=== PATIENT | female | born 1950 | race Caucasian/White ===

== ENCOUNTER 2016-04-04 14:57 | Inpatient (IN) | payer MEDICARE ==
[~2016-04-04] VITALS: Ht 177.8 cm; Wt 129.5 kg
[~2016-04-04 14:57] MED LIST: ASPI81TA3 PO; ATOR40TA68 PO; CLOP75TA27 PO; HYDR-3498 PO; LEVE250T66 PO; LORA0.5T PO; NIFE30TA2 PO; ZOLP5TAB PO
[2016-04-04] MEDS ORDERED: SOD CHLORIDE 0.9% 1,000 ML IV ONE (15:00)
[2016-04-04] MEDS ORDERED: SOD CHLORIDE 0.9% 1,000 ML IV STA (15:00)
--- NOTE | 2016-04-04 15:36 | RADRPT ---
PROCEDURE: XR Chest. CLINICAL INDICATION: chest pain, abdominal pain TECHNIQUE: Single frontal view of the chest was obtained COMPARISON: 11/08/15 FINDINGS: The heart and mediastinum are within normal limits. The lungs are clear. There is no pleural effusion or pneumothorax. RPTAT: AA IMPRESSION: No acute disease. .Pollo Cleary MD, MD Date Time Electronically viewed and signed by .Pollo Cleary MD, on 04/04/2016 15:36 .S/
[2016-04-04 15:40] LABS: BASOPHILS % 0.1 % (0.0-2.0); HEMATOCRIT 36.9 % (37.0-47.0); HEMOGLOBIN 12.5 g/dl (12.0-16.0); LYMPHOCYTES # 1.3 10^3/ul (0.8-2.9); LYMPHOCYTES % 13.8 % (15.0-51.0); MEAN CORPUSCULAR HEMOGLOBIN 30.3 pg (29.0-33.0); MEAN CORPUSCULAR HGB CONC 33.8 g/dl (32.0-37.0); MEAN CORPUSCULAR VOLUME 89.6 fl (82.0-101.0); MEAN PLATELET VOLUME 8.2 fl (7.4-10.4); MONOCYTE # 0.6 10^3/ul (0.3-0.9); NEUTROPHIL # 7.8 10^3/ul (1.6-7.5); NEUTROPHILS % 80.1 % (39.0-77.0); PLATELET COUNT 319 10^3/UL (140-440); RED BLOOD COUNT 4.12 10^6/ul (4.20-5.40); RED CELL DISTRIBUTION WIDTH 13.7 % (11.5-14.5); UNCORRECTED WBC 9.7 10^3/ul (4.8-10.8); WHITE BLOOD COUNT 9.7 10^3/ul (4.8-10.8)
[2016-04-04 15:42] LABS: CONDITION 1
[2016-04-04] MEDS ORDERED: NIFE30TA2 PO (15:45)
[2016-04-04 15:48] LABS: INR 1.09; PROTIME 14.1 Sec (12.2-14.2); PT RATIO 1.1
[2016-04-04 15:49] LABS: CHLORIDE 95 mmol/L (97-110)
[2016-04-04 15:50] LABS: ALBUMIN 3.9 g/dl (3.3-4.9); POTASSIUM 3.8 mmol/L (3.5-5.1); SODIUM 135 mmol/L (135-144)
[2016-04-04 15:50] LABS: ADD UMIC NO; URINE BILIRUBIN (Dip) NEGATIVE (NEGATIVE); URINE BLOOD (Dip) NEGATIVE (NEGATIVE); URINE COLOR LT. YELLOW (YELLOW); URINE GLUCOSE (Dip) NEGATIVE (NEGATIVE); URINE KETONES (Dip) NEGATIVE (NEGATIVE); URINE LEUKOCYTE ESTERASE (Dip) NEGATIVE (NEGATIVE); URINE NITRITE (Dip) NEGATIVE (NEGATIVE); URINE TOTAL PROTEIN (Dip) NEGATIVE (NEGATIVE); URINE UROBILINOGEN (Dip) 0.2 E.U./dL (0.1-1.0)
[2016-04-04 15:52] LABS: CREATININE 1.33 mg/dl (0.44-1.00)
[2016-04-04 15:53] LABS: ALANINE AMINOTRANSFERASE 35 IU/L (13-69); ALBUMIN/GLOBULIN RATIO 1.39; ALKALINE PHOSPHATASE 126 IU/L (42-121); ANION GAP 17 (8-16); ASPARTATE AMINO TRANSFERASE 26 IU/L (15-46); BILIRUBIN,INDIRECT 0.5 mg/dl (0-1.1); BILIRUBIN,TOTAL 0.5 mg/dl (0.2-1.3); BLOOD UREA NITROGEN 18 mg/dl (7-20); CALCIUM 9.8 mg/dl (8.4-10.2); CARBON DIOXIDE 27 mmol/L (21-31); GLUCOSE 125 mg/dl (70-220); TOTAL PROTEIN 6.7 g/dl (6.1-8.1)
[2016-04-04 16:05] LABS: TROPONIN-I < 0.012 ng/ml (0.00-0.12)
[2016-04-04] MEDS ORDERED: ASPIRIN 325 MG TAB PO ONE (16:30)
--- NOTE | 2016-04-04 17:09 | ERA ---
ER Documentation Chief Complaint Date/Time DATE: 04/04/16 TIME: 17:02 Chief Complaint ALOC SINCE LAST NIGHT. HYSTERECTOMY LAST WEEK. R/O STEMI D/T EKG IN FIELD. HPI 65-year-old woman brought in by EMS after called 911 for increasing weakness beginning last night. She is status post total abdominal hysterectomy about 2 weeks ago and since last night has been more bedbound and generally weak. She also states she has had increasing paresthesias to the left upper and lower extremity since this morning (over 6 hours ago), which is similar to her stroke that she had last year. She denies fevers or chills, no chest pain or shortness of breath, no vomiting or diarrhea, no headache or blurry vision. Patient denies opioid or benzodiazepine use. Patient was transported here by EMS without further complications. ROS All systems reviewed and are negative except as per history of present illness. Medications Home Meds Active Scripts Clopidogrel Bisulfate (Clopidogrel) 75 Mg Tablet, 75 MG PO DAILY for 30 Days, TAB Prov:SUNI GARY NP 11/10/15 Aspirin (Aspirin) 81 Mg Chew, 81 MG PO DAILY for 30 Days, TAB Prov:SUNI GARY NP 11/10/15 Reported Medications Nifedipine (Procardia Xl) 30 Mg Tab.er.24, 30 MG PO DAILY, TAB 04/04/16 Hydrocodone Bit-Acetaminophen* ([place]*) 5-325 Mg Tab, 1 TAB PO Q4H Y for PAIN, TAB 08/06/15 Zolpidem Tartrate* (Ambien*) 5 Mg Tablet, 5 MG PO Y 08/04/11 Discontinued Scripts Lorazepam* (Lorazepam*) 0.5 Mg Tablet, 0.5 MG PO Q8 Y for ANXIETY, #10 TAB Prov:SUNI GARY NP 11/10/15 Nifedipine (Procardia Xl) 30 Mg Tab.er.24, 30 MG PO BID for 30 Days, TAB Prov:SUNI GARY NP 11/10/15 Levetiracetam* (Keppra*) 250 Mg Tab, 250 MG PO BID for 30 Days, TAB Prov:SUNI GARY NP 11/10/15 Atorvastatin* (Atorvastatin*) 40 Mg Tablet, 40 MG PO HS for 30 Days, TAB Prov:SUNI GARY NP 11/10/15 Allergies Allergies: Coded Allergies: No Known Drug Allergies (Verified Allergy, Unknown, 04/04/16) PMhx/Soc 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 diagnosed on MRI, left upper and lower extremity paresthesias, right total knee arthroplasty, bilateral carotid artery stenosis, hypertension, anxiety, obesity, seizure prophylaxis Anesthesia Reaction: No Hx Neurological Disorder: No (stroke 11/05) Hx Respiratory Disorders: No (htn ) Hx Cardiac Disorders: No Hx Psychiatric Problems: No Hx Miscellaneous Medical Probl: Yes (Anxiety) Hx Alcohol Use: No Hx Substance Use: No Hx Tobacco Use: No Smoking Status: Former smoker FmHx Family History: diabetes Physical Exam Vitals Vital Signs Date Time Temp Pulse Resp B/P Pulse Ox O2 Delivery O2 Flow Rate FiO2 04/04/16 15:59 Nasal Cannula 2 04/04/16 15:52 75 18 125/48 95 Nasal Cannula 2.0 04/04/16 15:13 100.2 81 18 136/62 90 Physical Exam GENERAL: Well-developed, well-nourished, appears dehydrated and generally weak. Afebrile, rectal temperature was 100.2F. HEENT: Dry mucous membranes, pink conjunctiva, no cervical spine tenderness or step-off deformities, no goiter, no jaundice or icterus, extraocular movements intact without pain. No submandibular induration, and no pharyngeal erythema NEURO: Alert and oriented 2, patient is able to answer simple questions and follow simple commands, cranial nerves II through XII intact bilaterally, pupils equal round reactive to light, no focal deficits or facial asymmetry, sensation intact distally Strength 5/5 in upper and lower extremities bilaterally. There is generalized muscular weakness throughout her extremities although both sides are equally weak and there is no focal deficits. CARDIAC: Regular rate and rhythm, no murmurs rubs or gallops LUNGS: Clear bilaterally no wheezing crackles or stridor ABDOMEN: Soft nontender, no guarding, no rigidity, no rebound, no psoas sign no obturator sign. Normoactive bowel sounds SKIN: Warm and dry to touch, no abrasions, contusions, or hematomas, no lacerations, no ecchymosis, no target lesions, and without ulcers EXTREMITIES: No clubbing cyanosis or edema, calves are bilaterally symmetrical, no Homans sign, no popliteal cord sign. Distal pulses equal and bilateral PSYCH: Normal affect without agitation or irritability Result Diagram: 04/04/16 1515 04/04/16 1515 Results 24 hrs Laboratory Tests Test 04/04/16 15:15 04/04/16 15:30 Alanine Aminotransferase (ALT/SGPT) 35IU/L Albumin 3.9g/dl Albumin/Globulin Ratio 1.39 Alkaline Phosphatase 126IU/L Anion Gap 17 Aspartate Amino Transf (AST/SGOT) 26IU/L Basophils # 0.010^3/ul Basophils % 0.1% Blood Urea Nitrogen 18mg/dl Calcium Level 9.8mg/dl Carbon Dioxide Level 27mmol/L Chloride Level 95mmol/L Creatinine 1.33mg/dl Direct Bilirubin 0.00mg/dl Eosinophils # 0.010^3/ul Eosinophils % 0.0% Globulin 2.80g/dl Glucose Level 125mg/dl Hematocrit 36.9% Hemoglobin 12.5g/dl INR International Normalized Ratio 1.09 Indirect Bilirubin 0.5mg/dl Lipase 32U/L Lymphocytes # 1.310^3/ul Lymphocytes % 13.8% Mean Corpuscular Hemoglobin 30.3pg Mean Corpuscular Hemoglobin Concent 33.8g/dl Mean Corpuscular Volume 89.6fl Mean Platelet Volume 8.2fl Monocytes # 0.610^3/ul Monocytes % 6.0% Neutrophils # 7.810^3/ul Neutrophils % 80.1% Nucleated Red Blood Cells # 0.010^3/ul Nucleated Red Blood Cells % 0.0/100WBC Platelet Count 28910^3/UL Potassium Level 3.8mmol/L Prothrombin Time 14.1Sec Prothrombin Time Ratio 1.1 Red Blood Count 4.1210^6/ul Red Cell Distribution Width 13.7% Sodium Level 135mmol/L Total Bilirubin 0.5mg/dl Total Protein 6.7g/dl Troponin I < 0.012ng/ml White Blood Count 9.710^3/ul Urine Bilirubin NEGATIVE Urine Clarity SLIGHTLY CLOUDY Urine Color LT. YELLOW Urine Glucose NEGATIVE% Urine Hemoglobin NEGATIVE Urine Ketones NEGATIVE Urine Leukocyte Esterase NEGATIVE Urine Nitrite NEGATIVE Urine Specific [place] 1.020 Urine Total Protein NEGATIVE Urine Urobilinogen 0.2 E.U./dL Urine pH 5.5 Current Medications Medications (Trade) Dose Ordered Sig/Codie Route PRN Reason Start Time Stop Time Status Last Admin Dose Admin Sodium Chloride 1,000 ml @ 1,000 mls/hr Q1H STAT IV 2/13/17 15:00 04/04/16 15:59 DC 04/04/16 15:51 Sodium Chloride (NS) 1,000 ml @ 1,000 mls/hr Q1H ONCE IV 04/04/16 15:00 04/04/16 15:59 DC 04/04/16 15:51 Aspirin (Aspirin) 325 mg ONCE ONCE PO 04/04/16 16:30 04/04/16 16:33 DC Procedures/MDM IV line was established patient was placed on operations coordinator rhythm strip revealed a sinus rhythm, wide complex, 90 bpm. Patient was afebrile. Blood sugar was normal. EKG performed, read by me revealed a normal sinus rhythm at 90 bpm, left axis deviation, and a right bundle branch block, no concerning ST elevations or depressions noted, QRS duration [address] scan of the brain was performed it was negative for acute bleed mass or shift. One view chest x-ray performed, read by me there is a right shoulder arthroplasty with hardware in place, cardiomegaly, no acute infiltrates, no pneumothorax. I administered 3 L normal saline intravenously for dehydration, and administered aspirin 325 mg p.o. for neuro protective measures. CBC and electrolytes were unremarkable, liver function tests were normal, troponin was negative. Urine analysis was also negative for infection and I will defer antibiotic administration pending urine cultures. Patient has no focal deficits and mental status has improved somewhat although she does remain encephalopathic and has complaints of left sided paresthesias which seems similar to her previous stroke. She will be admitted to telemetry setting for neurology consultation and MRI brain. 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
--- NOTE | 2016-04-04 17:10 | RADRPT ---
PROCEDURE: Noncontrast CT Head. CLINICAL INDICATION: Intracranial hemorrhage. TECHNIQUE: Noncontrast CT of the head was obtained. The administered radiation dose was CTDI vol = 44.58 mGy, DLP = 720.23 mGy-cm. COMPARISON: Noncontrast CT of the head from November 08, 2015. FINDINGS: There is minimal bilateral frontal cerebral volume loss. There is no loss of vizcarra-white differentiation to suggest acute territorial infarction. There is no acute intracranial hemorrhage or extra-axial fluid collection. There is no mass effect. No midline shift is identified. The orbits are within normal limits. The paranasal sinuses are well aerated. No destructive osseous lesion is identified. IMPRESSION: No significant change. 1. No acute intracranial hemorrhage or extra-axial fluid collection. 2. Minimal bilateral frontal cerebral volume loss. Further findings as detailed above. RPTAT: PP .Jaime Travis MD, MD Date Time Electronically viewed and signed by .Jaime Travis MD, MD on 04/04/2016 17:10 .F/
[2016-04-04 17:30] VITALS: BP 129/57; PULSE 83; RESP 19
[2016-04-04 18:00] VITALS: Ht 177.8 cm; Wt 129.5 kg
[2016-04-04] MEDS ORDERED: ONDANSETRON 4 MG INJ IV PRN (19:00)
[2016-04-04] MEDS ORDERED: morphine 2 MG INJ IV PRN (19:00)
[2016-04-04] MEDS ORDERED: ACETAMINOPHEN 325 MG TAB PO PRN (19:00)
[2016-04-04] MEDS ORDERED: ZOLPIDEM 5 MG TAB PO PRN (19:00)
[2016-04-04] MEDS ORDERED: NACL 0.9% 3 ML SYG IV SCH (19:00)
[2016-04-04] MEDS ORDERED: INFLUENZA VIRUS VACCINE 0.5 ML SYG IM* ONE (19:30)
[2016-04-04 20:00] VITALS: PULSE 66
[2016-04-04 20:14] VITALS: BP 124/58; RESP 18
[2016-04-04] MEDS: 1/2 NS + KCL 20 MEQ 1,000 ML IV SCH (20:58)
[2016-04-04] MEDS: metroNIDAZOLE 500 MG/NS (PMX) 100 ML IVPB SCH (21:09)
--- NOTE | 2016-04-04 22:52 | HP ---
DATE OF ADMISSION: 04/04/2016 CHIEF COMPLAINT: Weakness. HISTORY OF PRESENT ILLNESS: The patient is a 65-year-old female with a history of acute infarction in the right cingulate gyrus with no residual deficits, coronary artery disease, hypertension, dysli pidemia, obesity and anxiety disorder. The patient had a recent hysterectomy for dysfunctional uter ine bleeding approximately 2 weeks ago at an outside facility. Since then, the patient has been bec oming increasingly weak. She has been having loose bowel movements, unable to hold down any food as she continues to have diarrhea. She denies any nausea, vomiting. According to the , kesha zambrano is becoming increasingly weak to the point where she could not walk yesterday. She also had some slurred speech yesterday and this morning. The patient does report some focal weakness on the left side but also states that she is weak throughout her body and mostly in her lower extremities. In [facility] ED, brain CT showed no acute findings. The patient has no other complaints at this time. PAST MEDICAL HISTORY: As per HPI. PAST SURGICAL HISTORY: Right shoulder surgery, knee replacement x2, hysterectomy 2 weeks ago. HOME MEDICATIONS: 1. Aspirin. 2. Plavix. 3. [place]. 4. Procardia. 5. Ambien. FAMILY HISTORY: Denies. SOCIAL HISTORY: Denies any alcohol, tobacco or drug abuse. REVIEW OF SYSTEMS: A 12-point review of systems negative except for that as in HPI. PHYSICAL EXAMINATION: VITAL SIGNS: T-max 100.2, pulse 75, respiratory rate is 18, BP is 125/48, saturation 95% on 2 L. GENERAL: No acute distress. Alert and oriented. HEENT: Normocephalic, atraumatic. CHEST: Clear to auscultation. CARDIOVASCULAR: Regular rate and rhythm. ABDOMEN: Nondistended, nontender, soft, obese. EXTREMITIES: No clubbing, cyanosis, edema. NEUROLOGIC: Generalized weakness in all extremities at approximately 4-/5 in all extremities. No f ocal deficits are noted. LABORATORIES: White count is 9.7, hemoglobin 12.5, platelets are 319. Chemistry within normal limi ts except for chloride of 95, anion gap of 17, creatinine is 1.33, alkaline phosphatase of 126. INR is 1.09. UA is within normal limits. DIAGNOSTICS: Chest x-ray shows no acute disease. Brain CT shows no significant change, no acute intracranial hemorrhage or fluid collection. Minimal bilateral frontal cerebral volume loss. ASSESSMENT AND PLAN: 1. Generalized weakness, likely secondary to severe dehydration from persistent diarrhea. The abel ent's labs are suggestive of dehydration. Will treat with IV fluids, get a PT evaluation. The abel ent has no signs of infection at this time but will follow up with blood and urine cultures. Will t reat empirically with Rocephin IV. 2. Acute kidney injury, likely secondary to prerenal dehydration. Will treat with IV fluids, monit or. 3. History of cerebrovascular accident. The patient denies any residual deficits from her previous stroke. 4. Hypertension. Continue Procardia. 5. Dyslipidemia. Continue statin. 6. History of atherosclerosis with carotid artery stenosis. Continue aspirin, Plavix. 7. Prophylaxis. SCDs. Dictated By: IQRA SUN MD BS/NTS Conf#: [id number] DID#: [id number]
[2016-04-05] VITALS (13 sets, daily range): BP systolic 114–140; BP diastolic 56–61; PULSE 71–82; RESP 16–18
[2016-04-05] MEDS: 1/2 NS + KCL 20 MEQ 1,000 ML IV SCH ×3 (05:15→21:04)
[2016-04-05] MEDS: metroNIDAZOLE 500 MG/NS (PMX) 100 ML IVPB SCH (05:16)
[2016-04-05 08:06] LABS: ALBUMIN 3.3 g/dl (3.3-4.9); POTASSIUM 4.7 mmol/L (3.5-5.1)
[2016-04-05 08:08] LABS: CREATININE 1.02 mg/dl (0.44-1.00)
[2016-04-05 08:09] LABS: ALBUMIN/GLOBULIN RATIO 1.57; BILIRUBIN,INDIRECT 0.3 mg/dl (0-1.1); BILIRUBIN,TOTAL 0.3 mg/dl (0.2-1.3); CALCIUM 8.8 mg/dl (8.4-10.2); TOTAL PROTEIN 5.4 g/dl (6.1-8.1)
[2016-04-05 08:10] LABS: CHOL/HDL RATIO 3.3 RATIO; MAGNESIUM 1.5 mg/dl (1.7-2.5)
[2016-04-05 08:23] LABS: T3 UPTAKE 33.7 % (23.5-40.5)
[2016-04-05] MEDS: CLOPIDOGREL 75 MG TAB PO SCH (08:57)
[2016-04-05] MEDS: ASPIRIN 81 MG TAB PO SCH (08:57)
[2016-04-05] MEDS: NIFEdipine (XL) 30 MG TAB PO SCH (08:59)
[2016-04-05 09:08] LABS: BASOPHILS % 0.3 % (0.0-2.0); HEMATOCRIT 31.8 % (37.0-47.0); HEMOGLOBIN 10.8 g/dl (12.0-16.0); LYMPHOCYTES # 1.5 10^3/ul (0.8-2.9); LYMPHOCYTES % 19.8 % (15.0-51.0); MEAN CORPUSCULAR HEMOGLOBIN 30.4 pg (29.0-33.0); MEAN CORPUSCULAR VOLUME 89.5 fl (82.0-101.0); MEAN PLATELET VOLUME 7.9 fl (7.4-10.4); MONOCYTE # 0.6 10^3/ul (0.3-0.9); MONOCYTES % 8.7 % (0.0-11.0); NEUTROPHIL # 5.3 10^3/ul (1.6-7.5); NEUTROPHILS % 71.2 % (39.0-77.0); PLATELET COUNT 272 10^3/UL (140-440); RED BLOOD COUNT 3.56 10^6/ul (4.20-5.40); RED CELL DISTRIBUTION WIDTH 13.9 % (11.5-14.5); UNCORRECTED WBC 7.5 10^3/ul (4.8-10.8); WHITE BLOOD COUNT 7.5 10^3/ul (4.8-10.8)
[2016-04-05 09:14] LABS: CONDITION 1
--- NOTE | 2016-04-05 14:27 | PN ---
Date/Time of Note Date/Time of Note DATE: 04/05/16 TIME: 14:21 Assessment/Plan VTE Prophylaxis VTE Prophylaxis Intervention: SCD's Assessment/Plan Chief Complaint/Hosp Course 1. Generalized weakness, likely secondary to severe dehydration from persistent diarrhea -cont IVF, PT eval -CDiff pending, cont Flagyl 2. Prerenal dehydration -cont IVF 3. History of cerebrovascular accident-pt does report residual weakness on the L -Previous CVA involved the right cingulate gyrus c/w L sided weakness at baseline 4. Hypertension -Continue Procardia. 5. Dyslipidemia -Continue statin. 6. History of atherosclerosis with carotid artery stenosis -Continue aspirin, Plavix. 7. Prophylaxis. SCDs. Problems: Subjective 24 Hr Interval Summary Constitutional: other (gen weakness ) Exam/Review of Systems Vital Signs Vitals Vital Signs Date Time Temp Pulse Resp B/P Pulse Ox O2 Delivery O2 Flow Rate FiO2 04/05/16 12:26 79 04/05/16 11:49 98.3 16 117/59 97 04/04/16 17:30 Nasal Cannula 04/04/16 15:59 2 Intake and Output 04/04/16 04/04/16 04/05/16 15:00 23:00 07:00 Intake Total 100 ml 1580 ml Balance 100 ml 1580 ml Exam Constitutional: alert Respiratory: clear to auscultation Cardiovascular: regular rate and rhythm Gastrointestinal: soft, No distended Musculoskeletal: nl extremities to inspection Neurological: focal weakness (slightly weakner on the L ) Results Result Diagram: 04/05/16 0707 04/05/16 0707 Results 24 hrs Laboratory Tests Test 04/04/16 15:15 04/04/16 15:30 04/05/16 07:07 04/05/16 11:51 Alanine Aminotransferase (ALT/SGPT) 35 31 Albumin 3.9 3.3 Albumin/Globulin Ratio 1.39 1.57 Alkaline Phosphatase 126 H 106 Anion Gap 17 H 16 Aspartate Amino Transf (AST/SGOT) 26 25 Basophils # 0.0 0.0 Basophils % 0.1 0.3 Blood Urea Nitrogen 18 16 Calcium Level 9.8 8.8 Carbon Dioxide Level 27 25 Chloride Level 95 L 99 Creatinine 1.33 H 1.02 H Direct Bilirubin 0.00 0.00 Eosinophils # 0.0 0.0 Eosinophils % 0.0 0.0 Globulin 2.80 2.10 Glucose Level 125 127 Hematocrit 36.9 L 31.8 L Hemoglobin 12.5 10.8 L INR International Normalized Ratio 1.09 Indirect Bilirubin 0.5 0.3 Lipase 32 Lymphocytes # 1.3 1.5 Lymphocytes % 13.8 L 19.8 Mean Corpuscular Hemoglobin 30.3 30.4 Mean Corpuscular Hemoglobin Concent 33.8 34.0 Mean Corpuscular Volume 89.6 89.5 Mean Platelet Volume 8.2 7.9 Monocytes # 0.6 0.6 Monocytes % 6.0 8.7 Neutrophils # 7.8 H 5.3 Neutrophils % 80.1 H 71.2 Nucleated Red Blood Cells # 0.0 0.0 Nucleated Red Blood Cells % 0.0 0.0 Platelet Count 319 # 272 Potassium Level 3.8 4.7 Prothrombin Time 14.1 Prothrombin Time Ratio 1.1 Red Blood Count 4.12 L 3.56 L Red Cell Distribution Width 13.7 13.9 Sodium Level 135 135 Total Bilirubin 0.5 0.3 Total Protein 6.7 5.4 #L Troponin I < 0.012 White Blood Count 9.7 # 7.5 # Urine Bilirubin NEGATIVE Urine Clarity SLIGHTLY CLOUDY Urine Color LT. YELLOW Urine Glucose NEGATIVE Urine Hemoglobin NEGATIVE Urine Ketones NEGATIVE Urine Leukocyte Esterase NEGATIVE Urine Nitrite NEGATIVE Urine Specific [place] 1.020 Urine Total Protein NEGATIVE Urine Urobilinogen 0.2 E.U./dL Urine pH 5.5 Cholesterol Level 129 Cholesterol/HDL Ratio 3.3 Free Thyroxine Index 2.49 HDL Cholesterol 39 Hemoglobin A1c 5.6 LDL Cholesterol, Calculated 73 Magnesium Level 1.5 L Phosphorus Level 4.0 Thyroxine (T4) 7.4 Triglycerides Level 86 Triiodothyronine (T3) Uptake 33.7 Bedside Glucose 115 Medications Medications Current Medications Potassium Chloride/Sodium Chloride (02/21 NS + KCl 20 Meq) 1,000 ml @ 125 mls/hr Q8H IV Last administered on 04/05/16t 05:15; Admin Dose 125 MLS/HR; Start 04/04 at 18:50 Ondansetron HCl (Zofran Inj) 4 mg Q6H PRN IV NAUSEA AND/OR VOMITING; Start at 19:00 Acetaminophen (Tylenol Tab) 650 mg Q6H PRN PO PAIN LEVEL 1-3 OR FEVER; Start at 19:00 Acetaminophen/ Hydrocodone Bitart ([place] (5/325)) 1 tab Q6H PRN PO MODERATE PAIN LEVEL 4-6; Start 04/04/16 at 19:00 Morphine Sulfate (morphine) 2 mg Q4H PRN IV SEVERE PAIN LEVEL 7-10; Start 04/04 at 19:00 Zolpidem Tartrate (Ambien) 5 mg QHS PRN PO SLEEP; Start 04/04/16 at 19:00 Aspirin (Aspirin) 81 mg DAILY PO Last administered on 04/05/16 08:57; Admin Dose 81 MG; Start 04/05/16 at 09:00 Clopidogrel Bisulfate (plaVIX) 75 mg DAILY PO Last administered on 04/05/16 08 :57; Admin Dose 75 MG; Start 04/05/16 at 09:00 Nifedipine (Procardia Xl) 30 mg DAILY PO Last administered on 04/05/16 08:59; Admin Dose 30 MG; Start 04/05/16 at 09:00 Metronidazole (Flagyl) 500 mg TID PO ; Start 04/05/16 at 14:00 IQRA SUN Apr 05, 2016 14:27
[2016-04-05] MEDS: metroNIDAZOLE 500 MG TAB PO SCH ×2 (16:00→21:04)
[2016-04-05] MEDS ORDERED: MAGNESIUM SULFATE 4 GM/100 ML 100 ML IVPB ONE (16:00)
[2016-04-06] VITALS (14 sets, daily range): BP systolic 129–162; BP diastolic 60–76; PULSE 72–82; RESP 17–19
[2016-04-06] MEDS: 1/2 NS + KCL 20 MEQ 1,000 ML IV SCH ×3 (02:50→17:27)
[2016-04-06 07:29] LABS: BASOPHILS % 0.2 % (0.0-2.0); HEMATOCRIT 30.9 % (37.0-47.0); HEMOGLOBIN 10.6 g/dl (12.0-16.0); LYMPHOCYTES # 0.7 10^3/ul (0.8-2.9); LYMPHOCYTES % 11.4 % (15.0-51.0); MEAN CORPUSCULAR HEMOGLOBIN 30.4 pg (29.0-33.0); MEAN CORPUSCULAR HGB CONC 34.4 g/dl (32.0-37.0); MEAN CORPUSCULAR VOLUME 88.3 fl (82.0-101.0); MEAN PLATELET VOLUME 7.9 fl (7.4-10.4); MONOCYTE # 0.5 10^3/ul (0.3-0.9); MONOCYTES % 7.8 % (0.0-11.0); NEUTROPHILS % 80.6 % (39.0-77.0); PLATELET COUNT 232 10^3/UL (140-440); RED CELL DISTRIBUTION WIDTH 13.6 % (11.5-14.5); UNCORRECTED WBC 6.2 10^3/ul (4.8-10.8); WHITE BLOOD COUNT 6.2 10^3/ul (4.8-10.8)
[2016-04-06 07:33] LABS: CONDITION 1
[2016-04-06 07:39] LABS: POTASSIUM 4.1 mmol/L (3.5-5.1)
[2016-04-06 07:41] LABS: CREATININE 0.85 mg/dl (0.44-1.00)
[2016-04-06 07:42] LABS: CALCIUM 8.7 mg/dl (8.4-10.2); MAGNESIUM 2.3 mg/dl (1.7-2.5)
[2016-04-06] MEDS: CLOPIDOGREL 75 MG TAB PO SCH (08:26)
[2016-04-06] MEDS: ASPIRIN 81 MG TAB PO SCH (08:26)
[2016-04-06] MEDS: HYDROCODONE/APAP (5/325) TAB PO PRN ×2 (08:26→20:24)
[2016-04-06] MEDS: metroNIDAZOLE 500 MG TAB PO SCH ×3 (08:27→20:24)
[2016-04-06] MEDS: NIFEdipine (XL) 30 MG TAB PO SCH (08:27)
--- NOTE | 2016-04-06 14:19 | CONS ---
Date/Time of Note Date/Time of Note DATE: 04/06/16 TIME: 14:11 Assessment/Plan Assessment/Plan Additional Assessment/Plan Diarrhea * Rule out infectious process vs IBD * C diff stool test * Stool OB * CT abdomen * Start clear diet * Consider colonoscopy if clinically indicate Generalized weakness, likely secondary to severe dehydration from persistent diarrhea Prerenal dehydration History of cerebrovascular accident- * Previous CVA involved the right cingulate gyrus c/w L sided weakness at baseline Hypertension Dyslipidemia History of atherosclerosis with carotid artery stenosis Further recommendations depend on clinical course Consultation Date/Type/Reason Admit Date/Time Apr 04, 2016 at 16:51 Type of Consultation: GI Reason for Consultation Increase in stool Hx of Present Illness 65 YO F presented to ED after fall to bilateral knees. During hospitalization, pt reported that the frequency of her stools increased after her laparoscopic hysterectomy. Pt reports having up to 10 soft stools per day. Pt denies any soft stools with this hospitalization. Pt denies abdominal pain (other than from abdominal incisions), nausea, vomiting, fever, chills, travel outside [place], and sick contacts. Pt reports taking two doses of Flagyl after hysterectomy. Pt reports colonoscopy nearly nine years ago but denies history of colon polyps. Pt denies history of IBD, colon CA, and diverticulosis. Constitutional: other (gen weakness ) Past Surgical History Past Surgical Hx: other (hysterectomy) Social History Smoking Status: Never smoker Exam/Review of Systems Vital Signs Vitals Vital Signs Date Time Temp Pulse Resp B/P Pulse Ox O2 Delivery O2 Flow Rate FiO2 04/06/16 12:19 77 04/06/16 12:09 97.7 17 141/67 96 04/04/16 17:30 Nasal Cannula 04/04/16 15:59 2 Intake and Output 04/05/16 04/05/16 04/06/16 15:00 23:00 07:00 Intake Total 880 ml 300 ml Output Total 1050 ml 500 ml Balance -170 ml -200 ml Exam Constitutional: alert, obese, oriented, well developed Psych: nl mood/affect Head: normocephalic Eyes: EOMI, nl conjunctiva, nl lids, nl sclera ENMT: nl external ears & nose, nl lips & teeth, nl nasal mucosa & septum Respiratory: normal air movement Cardiovascular: regular rate and rhythm Gastrointestinal: soft, surgical scars (slightly tender) Neurological: 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 COFFEE ATTENDANT II-XII intact Results Result Diagram: 04/06/16 0636 04/06/16 0636 Results 24 hrs Laboratory Tests Test 04/06/16 06:36 Anion Gap 14 Basophils # 0.0 Basophils % 0.2 Blood Urea Nitrogen 12 Calcium Level 8.7 Carbon Dioxide Level 25 Chloride Level 99 Creatinine 0.85 Eosinophils # 0.0 Eosinophils % 0.0 Glucose Level 137 Hematocrit 30.9 L Hemoglobin 10.6 L Lymphocytes # 0.7 L Lymphocytes % 11.4 L Magnesium Level 2.3 Mean Corpuscular Hemoglobin 30.4 Mean Corpuscular Hemoglobin Concent 34.4 Mean Corpuscular Volume 88.3 Mean Platelet Volume 7.9 Monocytes # 0.5 Monocytes % 7.8 Neutrophils # 5.0 Neutrophils % 80.6 H Nucleated Red Blood Cells # 0.0 Nucleated Red Blood Cells % 0.0 Platelet Count 232 Potassium Level 4.1 Red Blood Count 3.50 L Red Cell Distribution Width 13.6 Sodium Level 134 L White Blood Count 6.2 Medications Medications Current Medications Potassium Chloride/Sodium Chloride (02/21 NS + KCl 20 Meq) 1,000 ml @ 125 mls/hr Q8H IV Last administered on 04/06/16 09:09; Admin Dose 125 MLS/HR; Start 04/04 at 18:50 Ondansetron HCl (Zofran Inj) 4 mg Q6H PRN IV NAUSEA AND/OR VOMITING; Start at 19:00 Acetaminophen (Tylenol Tab) 650 mg Q6H PRN PO PAIN LEVEL 1-3 OR FEVER; Start at 19:00 Acetaminophen/ Hydrocodone Bitart ([place] (5/325)) 1 tab Q6H PRN PO MODERATE PAIN LEVEL 4-6 Last administered on 04/06/16 08:26; Admin Dose 1 TAB; Start at 19:00 Morphine Sulfate (morphine) 2 mg Q4H PRN IV SEVERE PAIN LEVEL 7-10; Start 04/04 at 19:00 Zolpidem Tartrate (Ambien) 5 mg QHS PRN PO SLEEP; Start 04/04/16 at 19:00 Aspirin (Aspirin) 81 mg DAILY PO Last administered on 04/06/16 08:26; Admin Dose 81 MG; Start 04/05/16 at 09:00 Clopidogrel Bisulfate (plaVIX) 75 mg DAILY PO Last administered on 04/06/16 08 :26; Admin Dose 75 MG; Start 04/05/16 at 09:00 Nifedipine (Procardia Xl) 30 mg DAILY PO Last administered on 04/06/16 08:27; Admin Dose 30 MG; Start 04/05/16 at 09:00 Metronidazole (Flagyl) 500 mg TID PO Last administered on 04/06/16 13:46; Admin Dose 500 MG; Start 04/05/16 at 14:00 ALVA GOODEN MD Apr 06, 2016 14:18
[2016-04-06] MEDS ORDERED: BISACODYL (EC) 5 MG TAB PO ONE (15:00)
--- NOTE | 2016-04-06 15:35 | PN ---
Date/Time of Note Date/Time of Note DATE: 04/06/16 TIME: 15:34 Assessment/Plan VTE Prophylaxis VTE Prophylaxis Intervention: SCD's Lines/Catheters IV Catheter Type (from Nrs): Peripheral IV Assessment/Plan Chief Complaint/Hosp Course 1. Generalized weakness, likely secondary to severe dehydration from persistent diarrhea -cont IVF, PT eval -CDiff pending, cont Flagyl -GI consult -Rehab consult 2. Prerenal dehydration-Improved -cont IVF 3. History of cerebrovascular accident-pt does report residual weakness on the L -Previous CVA involved the right cingulate gyrus c/w L sided weakness at baseline 4. Hypertension -Continue Procardia. 5. Dyslipidemia -Continue statin. 6. History of atherosclerosis with carotid artery stenosis -Continue aspirin, Plavix. 7. Prophylaxis. SCDs. Problems: Subjective 24 Hr Interval Summary Constitutional: other (gen weakness) Exam/Review of Systems Vital Signs Vitals Vital Signs Date Time Temp Pulse Resp B/P Pulse Ox O2 Delivery O2 Flow Rate FiO2 04/06/16 12:19 77 04/06/16 12:09 97.7 17 141/67 96 04/04/16 17:30 Nasal Cannula 04/04/16 15:59 2 Intake and Output 04/05/16 04/05/16 04/06/16 15:00 23:00 07:00 Intake Total 880 ml 300 ml Output Total 1050 ml 500 ml Balance -170 ml -200 ml Exam Constitutional: alert Respiratory: clear to auscultation Cardiovascular: regular rate and rhythm Gastrointestinal: soft, No distended Musculoskeletal: nl extremities to inspection Neurological: other (gen weakness) Results Result Diagram: 04/06/16 0636 04/06/16 0636 Results 24 hrs Laboratory Tests Test 04/06/16 06:36 Anion Gap 14 Basophils # 0.0 Basophils % 0.2 Blood Urea Nitrogen 12 Calcium Level 8.7 Carbon Dioxide Level 25 Chloride Level 99 Creatinine 0.85 Eosinophils # 0.0 Eosinophils % 0.0 Glucose Level 137 Hematocrit 30.9 L Hemoglobin 10.6 L Lymphocytes # 0.7 L Lymphocytes % 11.4 L Magnesium Level 2.3 Mean Corpuscular Hemoglobin 30.4 Mean Corpuscular Hemoglobin Concent 34.4 Mean Corpuscular Volume 88.3 Mean Platelet Volume 7.9 Monocytes # 0.5 Monocytes % 7.8 Neutrophils # 5.0 Neutrophils % 80.6 H Nucleated Red Blood Cells # 0.0 Nucleated Red Blood Cells % 0.0 Platelet Count 232 Potassium Level 4.1 Red Blood Count 3.50 L Red Cell Distribution Width 13.6 Sodium Level 134 L White Blood Count 6.2 Medications Medications Current Medications Potassium Chloride/Sodium Chloride (1/2 NS + KCl 20 Meq) 1,000 ml @ 125 mls/hr Q8H IV Last administered on 04/06/16 09:09; Admin Dose 125 MLS/HR; Start 04/04 at 18:50 Ondansetron HCl (Zofran Inj) 4 mg Q6H PRN IV NAUSEA AND/OR VOMITING; Start at 19:00 Acetaminophen (Tylenol Tab) 650 mg Q6H PRN PO PAIN LEVEL 1-3 OR FEVER; Start at 19:00 Acetaminophen/ Hydrocodone Bitart ([place] (5/325)) 1 tab Q6H PRN PO MODERATE PAIN LEVEL 4-6 Last administered on 04/06/16 08:26; Admin Dose 1 TAB; Start at 19:00 Morphine Sulfate (morphine) 2 mg Q4H PRN IV SEVERE PAIN LEVEL 7-10; Start 04/04 at 19:00 Zolpidem Tartrate (Ambien) 5 mg QHS PRN PO SLEEP; Start 04/04/16 at 19:00 Aspirin (Aspirin) 81 mg DAILY PO Last administered on 04/06/16 08:26; Admin Dose 81 MG; Start 04/05/16 at 09:00 Clopidogrel Bisulfate (plaVIX) 75 mg DAILY PO Last administered on 04/06/16 08 :26; Admin Dose 75 MG; Start 04/05/16 at 09:00 Nifedipine (Procardia Xl) 30 mg DAILY PO Last administered on 04/06/16 08:27; Admin Dose 30 MG; Start 04/05/16 at 09:00 Metronidazole (Flagyl) 500 mg TID PO Last administered on 04/06/16 13:46; Admin Dose 500 MG; Start 04/05/16 at 14:00 IQRA SUN Apr 06, 2016 15:35
[2016-04-06] MEDS ORDERED: BARIUM SULF 2% 450 ML BTL (BERRY SMOOTHIE) PO ONE (16:00)
[2016-04-07] VITALS (10 sets, daily range): BP systolic 137–146; BP diastolic 65–70; PULSE 71–88; RESP 14–18
[2016-04-07] MEDS: 1/2 NS + KCL 20 MEQ 1,000 ML IV SCH ×3 (02:26→16:49)
[2016-04-07] MEDS: HYDROCODONE/APAP (5/325) TAB PO PRN ×3 (02:28→22:19)
[2016-04-07 08:23] LABS: BASOPHILS % 0.4 % (0.0-2.0); HEMATOCRIT 30.7 % (37.0-47.0); HEMOGLOBIN 10.4 g/dl (12.0-16.0); LYMPHOCYTES % 16.8 % (15.0-51.0); MEAN CORPUSCULAR HEMOGLOBIN 30.4 pg (29.0-33.0); MEAN CORPUSCULAR VOLUME 89.5 fl (82.0-101.0); MEAN PLATELET VOLUME 8.2 fl (7.4-10.4); MONOCYTE # 0.5 10^3/ul (0.3-0.9); MONOCYTES % 8.8 % (0.0-11.0); NEUTROPHIL # 4.3 10^3/ul (1.6-7.5); PLATELET COUNT 246 10^3/UL (140-440); RED BLOOD COUNT 3.43 10^6/ul (4.20-5.40); RED CELL DISTRIBUTION WIDTH 13.7 % (11.5-14.5); UNCORRECTED WBC 5.8 10^3/ul (4.8-10.8); WHITE BLOOD COUNT 5.8 10^3/ul (4.8-10.8)
[2016-04-07 08:26] LABS: CONDITION 1
[2016-04-07 08:29] LABS: POTASSIUM 4.3 mmol/L (3.5-5.1)
[2016-04-07 08:32] LABS: CREATININE 0.9 mg/dl (0.44-1.00)
[2016-04-07 08:33] LABS: CALCIUM 8.8 mg/dl (8.4-10.2)
[2016-04-07] MEDS: CLOPIDOGREL 75 MG TAB PO SCH (09:01)
[2016-04-07] MEDS: metroNIDAZOLE 500 MG TAB PO SCH ×3 (09:01→21:14)
[2016-04-07] MEDS: ASPIRIN 81 MG TAB PO SCH (09:01)
[2016-04-07] MEDS: NIFEdipine (XL) 30 MG TAB PO SCH (09:02)
--- NOTE | 2016-04-07 11:44 | CONS ---
Date/Time of Note Date/Time of Note DATE: 04/07/16 TIME: 11:40 Assessment/Plan Assessment/Plan Additional Assessment/Plan Diarrhea * Rule out infectious process vs IBD * C diff stool test * Stool OB * CT abdomen * Start clear diet * Consider colonoscopy if clinically indicate Generalized weakness, likely secondary to severe dehydration from persistent diarrhea Prerenal dehydration History of cerebrovascular accident- * Previous CVA involved the right cingulate gyrus c/w L sided weakness at baseline Hypertension Dyslipidemia History of atherosclerosis with carotid artery stenosis Further recommendations depend on clinical course Consultation Date/Type/Reason Admit Date/Time Apr 06, 2016 at 11:07 Initial Consult Date Type of Consultation: GI 24 HR Interval Summary Free Text/Dictation CT planned today No BM yet Exam/Review of Systems Vital Signs Vitals Vital Signs Date Time Temp Pulse Resp B/P Pulse Ox O2 Delivery O2 Flow Rate FiO2 04/07/16 08:29 98.4 75 14 145/66 95 04/06/16 23:35 Room Air 04/04/16 15:59 2 Intake and Output 04/06/16 04/06/16 04/07/16 15:00 23:00 07:00 Intake Total 800 ml 1000 ml Balance 800 ml 1000 ml Exam Constitutional: alert, obese, oriented, well developed Psych: nl mood/affect Head: normocephalic Eyes: EOMI, nl conjunctiva, nl lids, nl sclera ENMT: nl external ears & nose, nl lips & teeth, nl nasal mucosa & septum Respiratory: normal air movement Cardiovascular: regular rate and rhythm Gastrointestinal: soft, surgical scars (slightly tender) 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 Results Result Diagram: 04/07/16 0700 04/07/16 0700 Results 24 hrs Laboratory Tests Test 04/07/16 07:00 Anion Gap 13 Basophils # 0.0 Basophils % 0.4 Blood Urea Nitrogen 11 Calcium Level 8.8 Carbon Dioxide Level 26 Chloride Level 104 Creatinine 0.90 Eosinophils # 0.0 Eosinophils % 0.0 Glucose Level 101 Hematocrit 30.7 L Hemoglobin 10.4 L Lymphocytes # 1.0 Lymphocytes % 16.8 Mean Corpuscular Hemoglobin 30.4 Mean Corpuscular Hemoglobin Concent 34.0 Mean Corpuscular Volume 89.5 Mean Platelet Volume 8.2 Monocytes # 0.5 Monocytes % 8.8 Neutrophils # 4.3 Neutrophils % 74.0 Nucleated Red Blood Cells # 0.0 Nucleated Red Blood Cells % 0.0 Platelet Count 246 Potassium Level 4.3 Red Blood Count 3.43 L Red Cell Distribution Width 13.7 Sodium Level 139 White Blood Count 5.8 Medications Medications Current Medications Potassium Chloride/Sodium Chloride (1/2 NS + KCl 20 Meq) 1,000 ml @ 125 mls/hr Q8H IV Last administered on 04/07/16 11:29; Admin Dose 125 MLS/HR; Start 04/04 at 18:50 Ondansetron HCl (Zofran Inj) 4 mg Q6H PRN IV NAUSEA AND/OR VOMITING; Start at 19:00 Acetaminophen (Tylenol Tab) 650 mg Q6H PRN PO PAIN LEVEL 1-3 OR FEVER; Start at 19:00 Acetaminophen/ Hydrocodone Bitart ([place] (5/325)) 1 tab Q6H PRN PO MODERATE PAIN LEVEL 4-6 Last administered on 04/07/16 02:28; Admin Dose 1 TAB; Start at 19:00 Morphine Sulfate (morphine) 2 mg Q4H PRN IV SEVERE PAIN LEVEL 7-10; Start 04/04 at 19:00 Zolpidem Tartrate (Ambien) 5 mg QHS PRN PO SLEEP; Start 04/04/16 at 19:00 Aspirin (Aspirin) 81 mg DAILY PO Last administered on 04/07/16 09:01; Admin Dose 81 MG; Start 04/05/16 at 09:00 Clopidogrel Bisulfate (plaVIX) 75 mg DAILY PO Last administered on 04/07/16 09 :01; Admin Dose 75 MG; Start 04/05/16 at 09:00 Nifedipine (Procardia Xl) 30 mg DAILY PO Last administered on 04/07/16 09:02; Admin Dose 30 MG; Start 04/05/16 at 09:00 Metronidazole (Flagyl) 500 mg TID PO Last administered on 04/07/16 09:01; Admin Dose 500 MG; Start 04/05/16 at 14:00 HAYLEY VILLASENOR Apr 07, 2016 11:44
--- NOTE | 2016-04-07 14:28 | PN ---
Date/Time of Note Date/Time of Note DATE: 04/07/16 TIME: 14:26 Assessment/Plan VTE Prophylaxis VTE Prophylaxis Intervention: SCD's Lines/Catheters IV Catheter Type (from Nrsg): Peripheral IV Assessment/Plan Chief Complaint/Hosp Course 1. Generalized weakness, likely secondary to severe dehydration from persistent diarrhea -cont IVF, PT eval -CDiff pending, cont Flagyl -GI consult appreciated, plan for CT Abd today -Rehab consult, CM eval for possible SNF if not a candidate for ARU 2. Prerenal dehydration-Improved -cont IVF 3. History of cerebrovascular accident-pt does report residual weakness on the L -Previous CVA involved the right cingulate gyrus c/w L sided weakness at baseline 4. Hypertension -Continue Procardia. 5. Dyslipidemia -Continue statin. 6. History of atherosclerosis with carotid artery stenosis -Continue aspirin, Plavix. 7. Prophylaxis. SCDs. Problems: Subjective 24 Hr Interval Summary Neurologic: other (gen weakness worse on the L ) Exam/Review of Systems Vital Signs Vitals Vital Signs Date Time Temp Pulse Resp B/P Pulse Ox O2 Delivery O2 Flow Rate FiO2 04/07/16 12:40 98.4 85 18 137/70 96 04/06/16 23:35 Room Air 04/04/16 15:59 2 Intake and Output 04/06/16 04/06/16 04/07/16 15:00 23:00 07:00 Intake Total 800 ml 1000 ml Balance 800 ml 1000 ml Exam Constitutional: alert, oriented Respiratory: clear to auscultation Cardiovascular: regular rate and rhythm Gastrointestinal: soft, No distended Musculoskeletal: nl extremities to inspection Neurological: focal weakness (weakness worse on the L then the R ) Results Result Diagram: 04/07/16 0700 04/07/16 0700 Results 24 hrs Laboratory Tests Test 04/07/16 07:00 Anion Gap 13 Basophils # 0.0 Basophils % 0.4 Blood Urea Nitrogen 11 Calcium Level 8.8 Carbon Dioxide Level 26 Chloride Level 104 Creatinine 0.90 Eosinophils # 0.0 Eosinophils % 0.0 Glucose Level 101 Hematocrit 30.7 L Hemoglobin 10.4 L Lymphocytes # 1.0 Lymphocytes % 16.8 Mean Corpuscular Hemoglobin 30.4 Mean Corpuscular Hemoglobin Concent 34.0 Mean Corpuscular Volume 89.5 Mean Platelet Volume 8.2 Monocytes # 0.5 Monocytes % 8.8 Neutrophils # 4.3 Neutrophils % 74.0 Nucleated Red Blood Cells # 0.0 Nucleated Red Blood Cells % 0.0 Platelet Count 246 Potassium Level 4.3 Red Blood Count 3.43 L Red Cell Distribution Width 13.7 Sodium Level 139 White Blood Count 5.8 Medications Medications Current Medications Potassium Chloride/Sodium Chloride (1 NS + KCl 20 Meq) 1,000 ml @ 125 mls/hr Q8H IV Last administered on 04/07/16 11:29; Admin Dose 125 MLS/HR; Start 04/04 at 18:50 Ondansetron HCl (Zofran Inj) 4 mg Q6H PRN IV NAUSEA AND/OR VOMITING; Start at 19:00 Acetaminophen (Tylenol Tab) 650 mg Q6H PRN PO PAIN LEVEL 1-3 OR FEVER; Start at 19:00 Acetaminophen/ Hydrocodone Bitart ([employer] (5/325)) 1 tab Q6H PRN PO MODERATE PAIN LEVEL 4-6 Last administered on 04/07/16 02:28; Admin Dose 1 TAB; Start at 19:00 Morphine Sulfate (morphine) 2 mg Q4H PRN IV SEVERE PAIN LEVEL 7-10; Start 04/04 at 19:00 Zolpidem Tartrate (Ambien) 5 mg QHS PRN PO SLEEP; Start 04/04/16 at 19:00 Aspirin (Aspirin) 81 mg DAILY PO Last administered on 04/07/16 09:01; Admin Dose 81 MG; Start 04/05/16 at 09:00 Clopidogrel Bisulfate (plaVIX) 75 mg DAILY PO Last administered on 04/07/16 09 :01; Admin Dose 75 MG; Start 04/05/16 at 09:00 Nifedipine (Procardia Xl) 30 mg DAILY PO Last administered on 04/07/16 09:02; Admin Dose 30 MG; Start 04/05/16 at 09:00 Metronidazole (Flagyl) 500 mg TID PO Last administered on 04/07/16 09:01; Admin Dose 500 MG; Start 04/05/16 at 14:00 IQRA SUN Apr 07, 2016 14:28
--- NOTE | 2016-04-07 17:56 | RADRPT ---
PROCEDURE: CT abdomen and pelvis without IV contrast. CLINICAL INDICATION: Abdominal pain TECHNIQUE: CT scan of the abdomen and pelvis without contrast was performed on the [employer] volumetric [address] scanner. The patient was scanned without intravenous contrast. Oral contrast is provided . Coronal and sagittal reformatted images were obtained from the axial source images. The CTDI vol is 23.73 mGy and the DLP is 1466.95 mGy-cm. COMPARISON: None. FINDINGS: CT abdomen: The lung bases are clear. The heart size is not enlarged and is without pericardial thickening or e ffusion. The liver is normal in size and density and is without focal mass or intrahepatic biliary dilatation . The calcification is seen in the posterior aspect of the spleen. The spleen measures 14.6 cm in t he AP axis. The spleen is otherwise homogeneous in density. The stomach is grossly unremarkable. T he pancreas as visualized is normal. The gallbladder and biliary tree are unremarkable and there is no evidence for common bile duct dilatation. The adrenal glands are symmetric and normal. The kid neys are symmetrically unremarkable as well. Mild to moderate right hydronephrosis is seen with mild left hydronephrosis. The bilateral ureters are normal in course and caliber. No obstructing stone is seen. The aorta is of normal in caliber. Atherosclerotic vascular disease is seen. There is no retroperito joey lymphadenopathy. The lisa hepatis region is clear. The left hemicolon and rectosigmoid regio n is stool-filled. Suggestion of mild inflammatory changes adjacent to the sigmoid colon is seen. Diverticulosis in the sigmoid colon is suggested. The small and remainder of the large bowel and me sentery, as visualized, are otherwise unremarkable. The normal appendix is identified. CT pelvis: The uterus is absent. The pelvic sidewalls and inguinal regions are clear. No pelvic mass, lymphad enopathy, or free fluid is seen. No acute inflammation is seen. The urinary bladder is within norm al limits. Degenerative spondylosis of the lumbar spine is seen. A left hip arthroplasty is seen. No osteolyt ic or osteoblastic lesion is detected. IMPRESSION: 1. Suggestion of mild inflammatory changes adjacent to the sigmoid colon, questionable if the findi ngs are related to diverticulitis versus colitis. 2. Stool-filled left hemicolon and rectosigmoid region. 3. Mild to moderate right hydronephrosis with mild left hydronephrosis without evidence of obstruct ing stone or mass. The bilateral ureters are normal in caliber. 4. Mild splenomegaly. RPTAT: HPNM Kalyan Harris Physician Date Time Electronically viewed and signed by Kalyan Harris, Physician on 04/07/2016 17:55 /
[2016-04-08] VITALS (12 sets, daily range): BP systolic 133–150; BP diastolic 63–77; PULSE 73–82; RESP 18
[2016-04-08] MEDS: 1/2 NS + KCL 20 MEQ 1,000 ML IV SCH ×4 (00:38→20:51)
[2016-04-08] MEDS: HYDROCODONE/APAP (5/325) TAB PO PRN ×2 (08:03→15:43)
[2016-04-08 08:04] LABS: POTASSIUM 3.9 mmol/L (3.5-5.1)
[2016-04-08] MEDS: CLOPIDOGREL 75 MG TAB PO SCH (08:04)
[2016-04-08] MEDS: metroNIDAZOLE 500 MG TAB PO SCH ×3 (08:04→20:50)
[2016-04-08] MEDS: ASPIRIN 81 MG TAB PO SCH (08:04)
[2016-04-08] MEDS: NIFEdipine (XL) 30 MG TAB PO SCH (08:04)
[2016-04-08 08:06] LABS: CREATININE 0.77 mg/dl (0.44-1.00)
[2016-04-08 08:07] LABS: CALCIUM 8.9 mg/dl (8.4-10.2)
[2016-04-08 08:11] LABS: BASOPHILS % 0.2 % (0.0-2.0); HEMOGLOBIN 10.7 g/dl (12.0-16.0); LYMPHOCYTES # 0.7 10^3/ul (0.8-2.9); LYMPHOCYTES % 13.7 % (15.0-51.0); MEAN CORPUSCULAR HEMOGLOBIN 30.4 pg (29.0-33.0); MEAN CORPUSCULAR HGB CONC 34.4 g/dl (32.0-37.0); MEAN CORPUSCULAR VOLUME 88.4 fl (82.0-101.0); MEAN PLATELET VOLUME 7.7 fl (7.4-10.4); MONOCYTE # 0.4 10^3/ul (0.3-0.9); MONOCYTES % 7.3 % (0.0-11.0); NEUTROPHIL # 3.8 10^3/ul (1.6-7.5); NEUTROPHILS % 78.8 % (39.0-77.0); PLATELET COUNT 283 10^3/UL (140-440); RED BLOOD COUNT 3.51 10^6/ul (4.20-5.40); RED CELL DISTRIBUTION WIDTH 13.5 % (11.5-14.5); UNCORRECTED WBC 4.9 10^3/ul (4.8-10.8); WHITE BLOOD COUNT 4.9 10^3/ul (4.8-10.8)
[2016-04-08 08:25] LABS: CONDITION 1
--- NOTE | 2016-04-08 10:09 | CONS ---
Date/Time of Note Date/Time of Note DATE: 04/08/16 TIME: 10:08 Assessment/Plan Assessment/Plan Additional Assessment/Plan Diarrhea * Rule out infectious process vs IBD * C diff stool test * Stool OB * CT abdomen * Start clear diet * Consider colonoscopy if clinically indicate Generalized weakness, likely secondary to severe dehydration from persistent diarrhea Prerenal dehydration History of cerebrovascular accident- * Previous CVA involved the right cingulate gyrus c/w L sided weakness at baseline Hypertension Dyslipidemia History of atherosclerosis with carotid artery stenosis Further recommendations depend on clinical course Consultation Date/Type/Reason Admit Date/Time Apr 06, 2016 at 11:07 Type of Consultation: GI 24 HR Interval Summary Free Text/Dictation Pt unable to have bowel movement Reviewed CT results Need to rule out C difff Will start Miralax BID Exam/Review of Systems Vital Signs Vitals Vital Signs Date Time Temp Pulse Resp B/P Pulse Ox O2 Delivery O2 Flow Rate FiO2 04/08/16 08:21 81 04/08/16 07:48 97.4 18 150/72 95 04/06/16 23:35 Room Air 04/04/16 15:59 2 Intake and Output 04/07/16 04/07/16 04/08/16 15:00 23:00 07:00 Intake Total 300 ml 1615 ml Balance 300 ml 1615 ml Exam Constitutional: alert, obese, oriented, well developed Psych: nl mood/affect Head: normocephalic Eyes: EOMI, nl conjunctiva, nl lids, nl sclera ENMT: nl external ears & nose, nl lips & teeth, nl nasal mucosa & septum Respiratory: normal air movement Cardiovascular: regular rate and rhythm Gastrointestinal: soft, surgical scars (slightly tender) 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 SERVICES MANAGER II-XII 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 Results Result Diagram: 04/08/1671604/08/16716 Results 24 hrs Laboratory Tests Test 04/08/16 07:17 Anion Gap 16 Basophils # 0.0 Basophils % 0.2 Blood Urea Nitrogen 10 Calcium Level 8.9 Carbon Dioxide Level 24 Chloride Level 104 Creatinine 0.77 Eosinophils # 0.0 Eosinophils % 0.0 Glucose Level 103 Hematocrit 31.0 L Hemoglobin 10.7 L Lymphocytes # 0.7 L Lymphocytes % 13.7 L Mean Corpuscular Hemoglobin 30.4 Mean Corpuscular Hemoglobin Concent 34.4 Mean Corpuscular Volume 88.4 Mean Platelet Volume 7.7 Monocytes # 0.4 Monocytes % 7.3 Neutrophils # 3.8 Neutrophils % 78.8 H Nucleated Red Blood Cells # 0.0 Nucleated Red Blood Cells % 0.0 Platelet Count 283 Potassium Level 3.9 Red Blood Count 3.51 L Red Cell Distribution Width 13.5 Sodium Level 140 White Blood Count 4.9 Medications Medications Current Medications Potassium Chloride/Sodium Chloride (1/2 NS + KCl 20 Meq) 1,000 ml @ 125 mls/hr Q8H IV Last administered on 04/08/16 00:38; Admin Dose 125 MLS/HR; Start 04/04 at 18:50 Ondansetron HCl (Zofran Inj) 4 mg Q6H PRN IV NAUSEA AND/OR VOMITING; Start at 19:00 Acetaminophen (Tylenol Tab) 650 mg Q6H PRN PO PAIN LEVEL 1-3 OR FEVER; Start at 19:00 Acetaminophen/ Hydrocodone Bitart ([place] (5/325)) 1 tab Q6H PRN PO MODERATE PAIN LEVEL 4-6 Last administered on 04/08/16 08:03; Admin Dose 1 TAB; Start at 19:00 Morphine Sulfate (morphine) 2 mg Q4H PRN IV SEVERE PAIN LEVEL 7-10; Start 04/04 at 19:00 Zolpidem Tartrate (Ambien) 5 mg QHS PRN PO SLEEP; Start 04/04/16 at 19:00 Aspirin (Aspirin) 81 mg DAILY PO Last administered on 04/08/16 08:04; Admin Dose 81 MG; Start 04/05/16 at 09:00 Clopidogrel Bisulfate (plaVIX) 75 mg DAILY PO Last administered on 04/08/16 08 :04; Admin Dose 75 MG; Start 04/05/16 at 09:00 Nifedipine (Procardia Xl) 30 mg DAILY PO Last administered on 04/08/16 08:04; Admin Dose 30 MG; Start 04/05/16 at 09:00 Metronidazole (Flagyl) 500 mg TID PO Last administered on 04/08/16 08:04; Admin Dose 500 MG; Start 04/05/16 at 14:00 HAYLEY VILLASENOR Apr 08, 2016 10:09
[2016-04-08] MEDS ORDERED: BUPR300T36 PO (11:23)
[2016-04-08] MEDS: POLYETHYLENE GLYCOL 17 GM PACKET PO SCH ×2 (11:25→20:53)
[2016-04-08] MEDS: BUPROPION (XL) 150 MG TAB PO SCH (13:30)
--- NOTE | 2016-04-08 14:57 | PN ---
Date/Time of Note Date/Time of Note DATE: 04/08/16 TIME: 14:43 Assessment/Plan VTE Prophylaxis VTE Prophylaxis Intervention: SCD's Lines/Catheters IV [facility] Peripheral IV Urinary Cath still in place: No Assessment/Plan Chief Complaint/Hosp Course 1. Generalized weakness, likely secondary to severe dehydration from persistent diarrhea -cont IVF, PT eval -CDiff pending, cont Flagyl -GI consult appreciated, CT Abd suggests Colitis but pt not having loose BM's at this timw -Pt would like to go home with HH vs Rehab, cont PT 2. Prerenal dehydration-resolved -cont IVF 3. History of cerebrovascular accident-pt does report residual weakness on the L -Previous CVA involved the right cingulate gyrus c/w L sided weakness at baseline 4. Hypertension -Continue Procardia. 5. Dyslipidemia -Continue statin. 6. History of atherosclerosis with carotid artery stenosis -Continue aspirin, Plavix. 7. Prophylaxis. SCDs. Problems: Subjective 24 Hr Interval Summary Constitutional: no complaints Exam/Review of Systems Vital Signs Vitals Vital Signs Date Time Temp Pulse Resp B/P Pulse Ox O2 Delivery O2 Flow Rate FiO2 04/08/16 12:45 81 04/08/16 11:58 98.3 18 142/77 98 04/06/16 23:35 Room Air 04/04/16 15:59 2 Intake and Output 04/07/16 04/07/16 04/08/16 15:00 23:00 07:00 Intake Total 300 ml 1615 ml Balance 300 ml 1615 ml Exam Constitutional: alert Respiratory: clear to auscultation Cardiovascular: regular rate and rhythm Gastrointestinal: soft, No distended Musculoskeletal: nl extremities to inspection Results Result Diagram: 04/08/16 0717 04/08/16 0717 Results 24 hrs Laboratory Tests Test 04/08/16 07:17 Anion Gap 16 Basophils # 0.0 Basophils % 0.2 Blood Urea Nitrogen 10 Calcium Level 8.9 Carbon Dioxide Level 24 Chloride Level 104 Creatinine 0.77 Eosinophils # 0.0 Eosinophils % 0.0 Glucose Level 103 Hematocrit 31.0 L Hemoglobin 10.7 L Lymphocytes # 0.7 L Lymphocytes % 13.7 L Mean Corpuscular Hemoglobin 30.4 Mean Corpuscular Hemoglobin Concent 34.4 Mean Corpuscular Volume 88.4 Mean Platelet Volume 7.7 Monocytes # 0.4 Monocytes % 7.3 Neutrophils # 3.8 Neutrophils % 78.8 H Nucleated Red Blood Cells # 0.0 Nucleated Red Blood Cells % 0.0 Platelet Count 283 Potassium Level 3.9 Red Blood Count 3.51 L Red Cell Distribution Width 13.5 Sodium Level 140 White Blood Count 4.9 Medications Medications Current Medications Potassium Chloride/Sodium Chloride (1/2 NS + KCl 20 Meq) 1,000 ml @ 125 mls/hr Q8H IV Last administered on 04/08/16 11:25; Admin Dose 125 MLS/HR; Start 04/04 at 18:50 Ondansetron HCl (Zofran Inj) 4 mg Q6H PRN IV NAUSEA AND/OR VOMITING; Start at 19:00 Acetaminophen (Tylenol Tab) 650 mg Q6H PRN PO PAIN LEVEL 1-3 OR FEVER; Start at 19:00 Acetaminophen/ Hydrocodone Bitart ([place] (5/325)) 1 tab Q6H PRN PO MODERATE PAIN LEVEL 4-6 Last administered on 04/08/16 08:03; Admin Dose 1 TAB; Start at 19:00 Morphine Sulfate (morphine) 2 mg Q4H PRN IV SEVERE PAIN LEVEL 7-10; Start 04/04 at 19:00 Zolpidem Tartrate (Ambien) 5 mg QHS PRN PO SLEEP; Start 04/04/16 at 19:00 Aspirin (Aspirin) 81 mg DAILY PO Last administered on 04/08/16 08:04; Admin Dose 81 MG; Start 04/05/16 at 09:00 Clopidogrel Bisulfate (plaVIX) 75 mg DAILY PO Last administered on 04/08/16 08 :04; Admin Dose 75 MG; Start 04/05/16 at 09:00 Nifedipine (Procardia Xl) 30 mg DAILY PO Last administered on 04/08/16 08:04; Admin Dose 30 MG; Start 04/05/16 at 09:00 Metronidazole (Flagyl) 500 mg TID PO Last administered on 04/08/16 14:12; Admin Dose 500 MG; Start 04/05/16 at 14:00 Polyethylene Glycol (Miralax) 17 gm BID PO Last administered on 04/08/16 11:25 ; Admin Dose 17 GM; Start 04/08/16 at 10:30 Bupropion HCl (Wellbutrin Xl) 300 mg DAILY PO ; Start 04/08/16 at 13:30 IQRA SUN Apr 08, 2016 14:57
[2016-04-09] VITALS (12 sets, daily range): BP systolic 135–173; BP diastolic 60–75; PULSE 71–87; RESP 18–20
[2016-04-09] MEDS: 1/2 NS + KCL 20 MEQ 1,000 ML IV SCH ×3 (05:53→23:58)
[2016-04-09] MEDS: POLYETHYLENE GLYCOL 17 GM PACKET PO SCH ×2 (09:00→21:00)
[2016-04-09] MEDS: CLOPIDOGREL 75 MG TAB PO SCH (09:57)
[2016-04-09] MEDS: BUPROPION (XL) 150 MG TAB PO SCH (09:57)
[2016-04-09] MEDS: metroNIDAZOLE 500 MG TAB PO SCH ×2 (09:57→12:52)
[2016-04-09] MEDS: ASPIRIN 81 MG TAB PO SCH (09:57)
[2016-04-09] MEDS: NIFEdipine (XL) 30 MG TAB PO SCH (09:57)
--- NOTE | 2016-04-09 13:14 | CONS ---
Date/Time of Note Date/Time of Note DATE: 04/09/16 TIME: 13:09 Assessment/Plan Assessment/Plan Chief Complaint/Hosp Course Impression: 1. Diarrhea: improved 2. Generalized weakness, likely secondary to severe dehydration from persistent diarrhea: improved 3. Prerenal dehydration: improved 4. History of cerebrovascular accident-Previous CVA involved the right cingulate gyrus c/w L sided weakness at baseline 5. Hypertension 6. Dyslipidemia Recommendation: 1. f/u C. diff 2. f/u stool OB 3. If C. diff negative, continue to treat with abx for possible diverticulitis seen on CT. If C. diff positive, treat for C. diff. 4. if OB negative and h/h stable, ok to dc from GI perspective if ok with primary and other consultants Problems: Consultation Date/Type/Reason Admit Date/Time Apr 06, 2016 at 11:07 Initial Consult Date Type of Consultation: GI 24 HR Interval Summary Free Text/Dictation patient wants to go home, states diarrhea improved Exam/Review of Systems Vital Signs Vitals Vital Signs Date Time Temp Pulse Resp B/P Pulse Ox O2 Delivery O2 Flow Rate FiO2 04/09/16 12:20 85 04/09/16 11:57 97.9 18 142/65 97 04/06/16 23:35 Room Air Intake and Output 04/08/16 04/08/16 04/09/16 15:00 23:00 07:00 Intake Total 250 ml 1470 ml 400 ml Output Total 700 ml 750 ml Balance 250 ml 770 ml -350 ml Exam Constitutional: alert, obese, oriented Psych: nl mood/affect, no complaints Head: atraumatic, normocephalic Eyes: EOMI, nl conjunctiva, nl lids, nl sclera ENMT: mucosa pink and moist, nl external ears & nose, nl lips & teeth, nl nasal mucosa & septum Neck: non-tender, supple Respiratory: clear to auscultation, normal air movement Cardiovascular: nl pulses, regular rate and rhythm Gastrointestinal: bowel sounds, non-tender, soft Results Result Diagram: 04/08/1671604/08/16716 Medications Medications Current Medications Potassium Chloride/Sodium Chloride (1/2 NS + KCl 20 Meq) 1,000 ml @ 125 mls/hr Q8H IV Last administered on 04/09/16t 05:53; Admin Dose 125 MLS/HR; Start 04/04 at 18:50 Ondansetron HCl (Zofran Inj) 4 mg Q6H PRN IV NAUSEA AND/OR VOMITING; Start at 19:00 Acetaminophen (Tylenol Tab) 650 mg Q6H PRN PO PAIN LEVEL 1-3 OR FEVER; Start at 19:00 Acetaminophen/ Hydrocodone Bitart ([place] (5/325)) 1 tab Q6H PRN PO MODERATE PAIN LEVEL 4-6 Last administered on 04/08/16 15:43; Admin Dose 1 TAB; Start at 19:00 Morphine Sulfate (morphine) 2 mg Q4H PRN IV SEVERE PAIN LEVEL 7-10; Start 04/04 at 19:00 Zolpidem Tartrate (Ambien) 5 mg QHS PRN PO SLEEP; Start 04/04/16 at 19:00 Aspirin (Aspirin) 81 mg DAILY PO Last administered on 04/09/16 09:57; Admin Dose 81 MG; Start 04/05/16 at 09:00 Clopidogrel Bisulfate (plaVIX) 75 mg DAILY PO Last administered on 04/09/16 09 :57; Admin Dose 75 MG; Start 04/05/16 at 09:00 Nifedipine (Procardia Xl) 30 mg DAILY PO Last administered on 04/09/16 09:57; Admin Dose 30 MG; Start 04/05/16 at 09:00 Metronidazole (Flagyl) 500 mg TID PO Last administered on 04/09/16 12:52; Admin Dose 500 MG; Start 04/05/16 at 14:00 Polyethylene Glycol (Miralax) 17 gm BID PO Last administered on 04/08/16 11:25 ; Admin Dose 17 GM; Start 04/08/16 at 10:30 Bupropion HCl (Wellbutrin Xl) 300 mg DAILY PO Last administered on 04/09/16 09 :57; Admin Dose 300 MG; Start 04/08/16 at 13:30 PUMA YOUNGBLOOD MD Apr 09, 2016 13:13
--- NOTE | 2016-04-09 16:19 | PN ---
Date/Time of Note Date/Time of Note DATE: 04/09/16 TIME: 16:17 Assessment/Plan VTE Prophylaxis VTE Prophylaxis Intervention: SCD's Lines/Catheters IV [facility]ter Type (from [facility]): Peripheral IV Urinary Cath still in place: No Assessment/Plan Chief Complaint/Hosp Course 1. Generalized weakness, likely secondary to severe dehydration from persistent diarrhea -cont IVF, PT eval -CDiff is negative, DC Flagyl -GI consult appreciated, CT Abd suggests Colitis but pt not having loose BM's at this time -Pt would like to go to ARU as is still weak but improved, does not want to go to a SNF and would rather go home if not accepted into ARU 2. Prerenal dehydration-resolved -cont IVF 3. History of cerebrovascular accident-pt does report residual weakness on the L -Previous CVA involved the right cingulate gyrus c/w L sided weakness at baseline 4. Hypertension -Continue Procardia. 5. Dyslipidemia -Continue statin. 6. History of atherosclerosis with carotid artery stenosis -Continue aspirin, Plavix. 7. Prophylaxis. SCDs. Problems: Subjective 24 Hr Interval Summary Constitutional: no complaints Exam/Review of Systems Vital Signs Vitals Vital Signs Date Time Temp Pulse Resp B/P Pulse Ox O2 Delivery O2 Flow Rate FiO2 04/09/16 12:20 85 04/09/16 11:57 97.9 18 142/65 97 04/06/16 23:35 Room Air Intake and Output 04/08/16 04/08/16 04/09/16 15:00 23:00 07:00 Intake Total 250 ml 1470 ml 400 ml Output Total 700 ml 750 ml Balance 250 ml 770 ml -350 ml Exam Constitutional: alert, oriented Respiratory: clear to auscultation Cardiovascular: regular rate and rhythm Gastrointestinal: soft, No distended Musculoskeletal: nl extremities to inspection Results Result Diagram: 04/08/1617 04/08/16 0717 Results 24 hrs Laboratory Tests Test 04/08/16 17:30 Stool Occult Blood NEGATIVE Medications Medications Current Medications Potassium Chloride/Sodium Chloride (1/2 NS + KCl 20 Meq) 1,000 ml @ 125 mls/hr Q8H IV Last administered on 04/09/16t 15:34; Admin Dose 125 MLS/HR; Start 04/04 at 18:50 Ondansetron HCl (Zofran Inj) 4 mg Q6H PRN IV NAUSEA AND/OR VOMITING; Start at 19:00 Acetaminophen (Tylenol Tab) 650 mg Q6H PRN PO PAIN LEVEL 1-3 OR FEVER; Start at 19:00 Acetaminophen/ Hydrocodone Bitart ([place] (5/325)) 1 tab Q6H PRN PO MODERATE PAIN LEVEL 4-6 Last administered on 04/08/16 15:43; Admin Dose 1 TAB; Start at 19:00 Morphine Sulfate (morphine) 2 mg Q4H PRN IV SEVERE PAIN LEVEL 7-10; Start 04/04 at 19:00 Zolpidem Tartrate (Ambien) 5 mg QHS PRN PO SLEEP; Start 04/04/16 at 19:00 Aspirin (Aspirin) 81 mg DAILY PO Last administered on 04/09/16 09:57; Admin Dose 81 MG; Start 04/05/16 at 09:00 Clopidogrel Bisulfate (plaVIX) 75 mg DAILY PO Last administered on 04/09/16 09 :57; Admin Dose 75 MG; Start 04/05/16 at 09:00 Nifedipine (Procardia Xl) 30 mg DAILY PO Last administered on 04/09/16 09:57; Admin Dose 30 MG; Start 04/05/16 at 09:00 Metronidazole (Flagyl) 500 mg TID PO Last administered on 04/09/16 12:52; Admin Dose 500 MG; Start 04/05/16 at 14:00 Polyethylene Glycol (Miralax) 17 gm BID PO Last administered on 04/08/16 11:25 ; Admin Dose 17 GM; Start 04/08/16 at 10:30 Bupropion HCl (Wellbutrin Xl) 300 mg DAILY PO Last administered on 04/09/16 09 :57; Admin Dose 300 MG; Start 04/08/16 at 13:30 IQRA SUN Apr 09, 2016 16:19
[2016-04-10] VITALS (9 sets, daily range): BP systolic 118–183; BP diastolic 63–83; PULSE 70–73; RESP 17–20
[2016-04-10] MEDS: HYDROCODONE/APAP (5/325) TAB PO PRN (05:07)
[2016-04-10] MEDS: POLYETHYLENE GLYCOL 17 GM PACKET PO SCH ×2 (09:00→21:00)
[2016-04-10] MEDS: NIFEdipine (XL) 30 MG TAB PO SCH (09:01)
[2016-04-10] MEDS: ASPIRIN 81 MG TAB PO SCH (09:01)
[2016-04-10] MEDS: CLOPIDOGREL 75 MG TAB PO SCH (09:01)
[2016-04-10] MEDS: BUPROPION (XL) 150 MG TAB PO SCH (09:02)
[2016-04-10] MEDS: 1/2 NS + KCL 20 MEQ 1,000 ML IV SCH ×2 (11:17→19:00)
--- NOTE | 2016-04-10 12:24 | CONS ---
Date/Time of Note Date/Time of Note DATE: 04/10/16 TIME: 12:22 Assessment/Plan Assessment/Plan Chief Complaint/Hosp Course Impression: 1. Diarrhea: improved. C. diff negative. 2. Generalized weakness, likely secondary to severe dehydration from persistent diarrhea: improved 3. Prerenal dehydration: improved 4. History of cerebrovascular accident-Previous CVA involved the right cingulate gyrus c/w L sided weakness at baseline 5. Hypertension 6. Anemia: occult blood negative. Recommendation: 1. advance diet to cardiac diet. 2. if OB negative and h/h stable, ok to dc from GI perspective if ok with primary and other consultants Problems: Consultation Date/Type/Reason Admit Date/Time Apr 06, 2016 at 11:07 Type of Consultation: GI 24 HR Interval Summary Free Text/Dictation feels hungry, diarrhea better, wants to be discharged Constitutional: improved Exam/Review of Systems Vital Signs Vitals Vital Signs Date Time Temp Pulse Resp B/P Pulse Ox O2 Delivery O2 Flow Rate FiO2 04/10/16 11:48 98.2 76 18 172/74 98 04/06/16 23:35 Room Air Intake and Output 04/09/16 04/09/16 04/10/16 15:00 23:00 07:00 Intake Total 1900 ml 750 ml Output Total 800 ml 600 ml Balance -800 ml 1300 ml 750 ml Exam Constitutional: alert, obese, oriented Psych: nl mood/affect, no complaints Head: atraumatic, normocephalic Eyes: EOMI, nl conjunctiva, nl lids, nl sclera ENMT: mucosa pink and moist, nl external ears & nose, nl lips & teeth, nl nasal mucosa & septum Neck: non-tender, supple Respiratory: clear to auscultation, normal air movement Cardiovascular: nl pulses, regular rate and rhythm Gastrointestinal: bowel sounds, non-tender, soft Results Result Diagram: 04/08/1671604/08/16716 Medications Medications Current Medications Potassium Chloride/Sodium Chloride (1/2 NS + KCl 20 Meq) 1,000 ml @ 125 mls/hr Q8H IV Last administered on 04/10/16t 11:17; Admin Dose 125 MLS/HR; Start 04/04 at 18:50 Ondansetron HCl (Zofran Inj) 4 mg Q6H PRN IV NAUSEA AND/OR VOMITING; Start at 19:00 Acetaminophen (Tylenol Tab) 650 mg Q6H PRN PO PAIN LEVEL 1-3 OR FEVER; Start at 19:00 Acetaminophen/ Hydrocodone Bitart ([place] (5/325)) 1 tab Q6H PRN PO MODERATE PAIN LEVEL 4-6 Last administered on 04/10/16 05:07; Admin Dose 1 TAB; Start at 19:00 Morphine Sulfate (morphine) 2 mg Q4H PRN IV SEVERE PAIN LEVEL 7-10; Start 04/04 at 19:00 Zolpidem Tartrate (Ambien) 5 mg QHS PRN PO SLEEP; Start 04/04/16 at 19:00 Aspirin (Aspirin) 81 mg DAILY PO Last administered on 04/10/16 09:01; Admin Dose 81 MG; Start 04/05/16 at 09:00 Clopidogrel Bisulfate (plaVIX) 75 mg DAILY PO Last administered on 04/10/16 09 :01; Admin Dose 75 MG; Start 04/05/16 at 09:00 Nifedipine (Procardia Xl) 30 mg DAILY PO Last administered on 04/10/16 09:01; Admin Dose 30 MG; Start 04/05/16 at 09:00 Polyethylene Glycol (Miralax) 17 gm BID PO Last administered on 04/08/16 11:25 ; Admin Dose 17 GM; Start 04/08/16 at 10:30 Bupropion HCl (Wellbutrin Xl) 300 mg DAILY PO Last administered on 04/10/16 09 :02; Admin Dose 300 MG; Start 04/08/16 at 13:30 PUMA YOUNGBLOOD MD Apr 10, 2016 12:24
--- NOTE | 2016-04-10 13:38 | PN ---
Date/Time of Note Date/Time of Note DATE: 04/10/16 TIME: 13:30 Assessment/Plan VTE Prophylaxis VTE Prophylaxis Intervention: SCD's Lines/Catheters [facility] Peripheral IV Urinary Cath still in place: No Assessment/Plan Chief Complaint/Hosp Course 1. Generalized weakness, likely secondary to severe dehydration from persistent diarrhea- much improved -cont IVF, PT eval -CDiff is negative, DC'd Flagyl -GI consult appreciated, CT Abd suggests Colitis but pt not having loose BM's at this time -Pt would like to go to ARU as is still weak but much improved, does not want to go to a SNF and would rather go home if not accepted into ARU, ARU had initially stated that pt is too low functioning but since that eval her strength has improved and she now may be a good candidate, ARU and PT to re evaluate tomorrow, not safe to return home yet as is not ambulating at this point 2. Prerenal dehydration-resolved -cont IVF 3. History of cerebrovascular accident-pt does report residual weakness on the L -Previous CVA involved the right cingulate gyrus c/w L sided weakness at baseline 4. Hypertension-BP elevated -Increase Procardia XL dose to 60 mg Daily and give 30 mg PO x 1 now 5. Dyslipidemia -Continue statin. 6. History of atherosclerosis with carotid artery stenosis -Continue aspirin, Plavix. 7. Prophylaxis. SCDs. Problems: Subjective 24 Hr Interval Summary Constitutional: no complaints Exam/Review of Systems Vital Signs Vitals Vital Signs Date Time Temp Pulse Resp B/P Pulse Ox O2 Delivery O2 Flow Rate FiO2 04/10/16 11:48 98.2 76 18 172/74 98 04/06/16 23:35 Room Air Intake and Output 04/09/16 04/09/16 04/10/16 15:00 23:00 07:00 Intake Total 1900 ml 750 ml Output Total 800 ml 600 ml Balance -800 ml 1300 ml 750 ml Exam Constitutional: alert, oriented Respiratory: clear to auscultation Cardiovascular: regular rate and rhythm Gastrointestinal: soft, No distended Musculoskeletal: nl extremities to inspection Results Result Diagram: 04/08/1671604/08/16716 Medications Medications Current Medications Potassium Chloride/Sodium Chloride (1/2 NS + KCl 20 Meq) 1,000 ml @ 125 mls/hr Q8H IV Last administered on 04/10/16 11:17; Admin Dose 125 MLS/HR; Start 04/04 at 18:50 Ondansetron HCl (Zofran Inj) 4 mg Q6H PRN IV NAUSEA AND/OR VOMITING; Start at 19:00 Acetaminophen (Tylenol Tab) 650 mg Q6H PRN PO PAIN LEVEL 1-3 OR FEVER; Start at 19:00 Acetaminophen/ Hydrocodone Bitart ([place] (5/325)) 1 tab Q6H PRN PO MODERATE PAIN LEVEL 4-6 Last administered on 04/10/16 05:07; Admin Dose 1 TAB; Start at 19:00 Morphine Sulfate (morphine) 2 mg Q4H PRN IV SEVERE PAIN LEVEL 7-10; Start 04/04 at 19:00 Zolpidem Tartrate (Ambien) 5 mg QHS PRN PO SLEEP; Start 04/04/16 at 19:00 Aspirin (Aspirin) 81 mg DAILY PO Last administered on 04/10/16 09:01; Admin Dose 81 MG; Start 04/05/16 at 09:00 Clopidogrel Bisulfate (plaVIX) 75 mg DAILY PO Last administered on 04/10/16 09 :01; Admin Dose 75 MG; Start 04/05/16 at 09:00 Nifedipine (Procardia Xl) 30 mg DAILY PO Last administered on 04/10/16 09:01; Admin Dose 30 MG; Start 04/05/16 at 09:00 Polyethylene Glycol (Miralax) 17 gm BID PO Last administered on 04/08/16 11:25 ; Admin Dose 17 GM; Start 04/08/16 at 10:30 Bupropion HCl (Wellbutrin Xl) 300 mg DAILY PO Last administered on 04/10/16 09 :02; Admin Dose 300 MG; Start 04/08/16 at 13:30 IQRA SUN Apr 10, 2016 13:38
[2016-04-10] MEDS ORDERED: NIFEdipine (XL) 30 MG TAB PO ONE (14:00)
[2016-04-11] MEDS: 1/2 NS + KCL 20 MEQ 1,000 ML IV SCH ×3 (02:50→18:31)
[2016-04-11] MEDS: HYDROCODONE/APAP (5/325) TAB PO PRN (05:12)
[2016-04-11 07:00] LABS: BASOPHILS % 0.4 % (0.0-2.0); HEMATOCRIT 32.7 % (37.0-47.0); HEMOGLOBIN 11.2 g/dl (12.0-16.0); LYMPHOCYTES # 0.8 10^3/ul (0.8-2.9); MEAN CORPUSCULAR HEMOGLOBIN 30.1 pg (29.0-33.0); MEAN CORPUSCULAR HGB CONC 34.3 g/dl (32.0-37.0); MEAN CORPUSCULAR VOLUME 87.6 fl (82.0-101.0); MEAN PLATELET VOLUME 6.9 fl (7.4-10.4); MONOCYTE # 0.1 10^3/ul (0.3-0.9); MONOCYTES % 3.8 % (0.0-11.0); NEUTROPHIL # 2.8 10^3/ul (1.6-7.5); NEUTROPHILS % 74.8 % (39.0-77.0); PLATELET COUNT 272 10^3/UL (140-440); RED BLOOD COUNT 3.73 10^6/ul (4.20-5.40); RED CELL DISTRIBUTION WIDTH 13.5 % (11.5-14.5); UNCORRECTED WBC 3.8 10^3/ul (4.8-10.8); WHITE BLOOD COUNT 3.8 10^3/ul (4.8-10.8)
[2016-04-11 07:05] LABS: CONDITION 1
[2016-04-11 07:10] LABS: POTASSIUM 4.4 mmol/L (3.5-5.1)
[2016-04-11 07:12] LABS: CREATININE 0.87 mg/dl (0.44-1.00)
[2016-04-11 07:13] LABS: CALCIUM 8.8 mg/dl (8.4-10.2); MAGNESIUM 1.6 mg/dl (1.7-2.5)
--- NOTE | 2016-04-11 07:48 | CONS ---
Date/Time of Note Date/Time of Note DATE: 04/11/16 TIME: 07:48 Assessment/Plan Assessment/Plan Chief Complaint/Hosp Course Impression: 1. Diarrhea: improved. C. diff negative. 2. Generalized weakness, likely secondary to severe dehydration from persistent diarrhea: improved 3. Prerenal dehydration: improved 4. History of cerebrovascular accident-Previous CVA involved the right cingulate gyrus c/w L sided weakness at baseline 5. Hypertension 6. Anemia: occult blood negative. Recommendation: 1. advance diet to cardiac diet. 2. if OB negative and h/h stable, ok to dc from GI perspective if ok with primary and other consultants Problems: Consultation Date/Type/Reason Admit Date/Time Apr 06, 2016 at 11:07 Type of Consultation: GI 24 HR Interval Summary Free Text/Dictation DOING BETTER, NO N/V Exam/Review of Systems Vital Signs Vitals Vital Signs Date Time Temp Pulse Resp B/P Pulse Ox O2 Delivery O2 Flow Rate FiO2 04/10/16 21:06 97.6 77 20 158/69 99 Intake and Output 04/10/16 04/10/16 04/11/16 15:00 23:00 07:00 Intake Total 1200 ml 1300 ml Output Total 1600 ml Balance -400 ml 1300 ml Exam Head: atraumatic, normocephalic Eyes: EOMI, nl conjunctiva, nl lids, nl sclera ENMT: mucosa pink and moist, nl external ears & nose, nl lips & teeth, nl nasal mucosa & septum Neck: non-tender, supple Respiratory: clear to auscultation, normal air movement Cardiovascular: nl pulses, regular rate and rhythm Gastrointestinal: bowel sounds, non-tender, soft Results Result Diagram: 04/11/16 0455 04/11/16 0455 Results 24 hrs Laboratory Tests Test 04/11/16 04:55 Anion Gap 13 Basophils # 0.0 Basophils % 0.4 Blood Morphology Comment Blood Urea Nitrogen 10 Calcium Level 8.8 Carbon Dioxide Level 29 Chloride Level 104 Creatinine 0.87 Eosinophils # 0.0 Eosinophils % 0.0 Glucose Level 83 Hematocrit 32.7 L Hemoglobin 11.2 L Lymphocytes # 0.8 Lymphocytes % 21.0 Magnesium Level 1.6 L Mean Corpuscular Hemoglobin 30.1 Mean Corpuscular Hemoglobin Concent 34.3 Mean Corpuscular Volume 87.6 Mean Platelet Volume 6.9 L Monocytes # 0.1 L Monocytes % 3.8 Neutrophils # 2.8 Neutrophils % 74.8 Nucleated Red Blood Cells # 0.0 Nucleated Red Blood Cells % 0.0 Platelet Count 272 Potassium Level 4.4 Red Blood Count 3.73 L Red Cell Distribution Width 13.5 Sodium Level 142 White Blood Count 3.8 #L Medications Medications Current Medications Potassium Chloride/Sodium Chloride (1/2 NS + KCl 20 Meq) 1,000 ml @ 125 mls/hr Q8H IV Last administered on 04/11/16 05:26; Admin Dose 125 MLS/HR; Start 04/04 at 18:50 Ondansetron HCl (Zofran Inj) 4 mg Q6H PRN IV NAUSEA AND/OR VOMITING; Start at 19:00 Acetaminophen (Tylenol Tab) 650 mg Q6H PRN PO PAIN LEVEL 1-3 OR FEVER; Start at 19:00 Acetaminophen/ Hydrocodone Bitart ([place] (5/325)) 1 tab Q6H PRN PO MODERATE PAIN LEVEL 4-6 Last administered on 04/11/16 05:12; Admin Dose 1 TAB; Start at 19:00 Morphine Sulfate (morphine) 2 mg Q4H PRN IV SEVERE PAIN LEVEL 7-10; Start 04/04 at 19:00 Zolpidem Tartrate (Ambien) 5 mg QHS PRN PO SLEEP; Start 04/04/16 at 19:00 Aspirin (Aspirin) 81 mg DAILY PO Last administered on 04/10/16 09:01; Admin Dose 81 MG; Start 04/05/16 at 09:00 Clopidogrel Bisulfate (plaVIX) 75 mg DAILY PO Last administered on 04/10/16 09 :01; Admin Dose 75 MG; Start 04/05/16 at 09:00 Polyethylene Glycol (Miralax) 17 gm BID PO Last administered on 04/08/16 11:25 ; Admin Dose 17 GM; Start 04/08/16 at 10:30 Bupropion HCl (Wellbutrin Xl) 300 mg DAILY PO Last administered on 04/10/16 09 :02; Admin Dose 300 MG; Start 04/08/16 at 13:30 Nifedipine (Procardia Xl) 60 mg DAILY PO ; Start 04/11/16 at 09:00 PUMA YOUNGBLOOD MD Apr 11, 2016 07:48
[2016-04-11 08:12] VITALS: BP 139/65; RESP 16
[2016-04-11] MEDS: ASPIRIN 81 MG TAB PO SCH (08:25)
[2016-04-11] MEDS: CLOPIDOGREL 75 MG TAB PO SCH (08:25)
[2016-04-11] MEDS: BUPROPION (XL) 150 MG TAB PO SCH (08:26)
[2016-04-11] MEDS: POLYETHYLENE GLYCOL 17 GM PACKET PO SCH (08:29)
[2016-04-11 08:31] VITALS: BP 139/52; PULSE 78; RESP 18
[2016-04-11] MEDS ORDERED: NIFEdipine (XL) 30 MG TAB PO SCH (09:00)
[2016-04-11] MEDS ORDERED: MAGNESIUM SULFATE 2 GM/50 ML 50 ML IVPB ONE (10:00)
--- NOTE | 2016-04-11 13:20 | DS ---
Date/Time of Note Date/Time of Note DATE: 04/11/16 TIME: 13:15 Discharge Summary Admission/Discharge Info Admit Date/Time Apr 06, 2016 at 11:07 Discharge Date/Time Final Diagnosis 1. Diarrhea: improved 2. Dehydration from diarrhea, improved 3. Prerenal acute renal failure, improved 4. History of cerebrovascular accident 5. Hypertension, controlled 6. Mild normocytic anemia: occult blood negative Patient Condition: Stable Hospital Course The patient is a 65-year-old female with a history of acute infarction in the right cingulate gyrus with no residual deficits, coronary artery disease, hypertension, dyslipidemia, obesity and anxiety disorder. The patient had a recent hysterectomy for dysfunctional uterine bleeding approximately 2 weeks ago at an outside facility. Since then, the patient has been becoming increasingly weak. She has been having loose bowel movements, unable to hold down any food as she continues to have diarrhea. She denies any nausea, vomiting. According to the , patient is becoming increasingly weak to the point where she could not walk yesterday. She also had some slurred speech yesterday and this morning. The patient does report some focal weakness on the left side but also states that she is weak throughout her body and mostly in her lower extremities. In the ED, brain CT showed no acute findings. The patient has no other complaints at this time. Patient was found of having dehydration with acute renal failure with BUN/Cr 18/ 1.33, that improved with IVF rehydration. Patient feels stronger. Disrrhea stopped after the admission. Stool is negative for OB and C. Diff. She is discharged and follow up with PCP. Home Meds Active Scripts Clopidogrel Bisulfate (Clopidogrel) 75 Mg Tablet, 75 MG PO DAILY for 30 Days, TAB Prov:[employer] 11/10/15 Aspirin (Aspirin) 81 Mg Chew, 81 MG PO DAILY for 30 Days, TAB Prov:[employer] 11/10/15 Reported Medications Bupropion Hcl* (Bupropion XL*) 300 Mg Tab.sr.24h, 300 MG PO DAILY, TAB.SA 04/08/16 Nifedipine (Procardia Xl) 30 Mg Tab.er.24, 30 MG PO DAILY, TAB 04/04/16 Hydrocodone Bit-Acetaminophen* ([place]*) 5-325 Mg Tab, 1 TAB PO Q4H Y for PAIN, TAB 08/06/15 Zolpidem Tartrate* (Ambien*) 5 Mg Tablet, 5 MG PO Y 08/04/11 Discontinued Scripts Lorazepam* (Lorazepam*) 0.5 Mg Tablet, 0.5 MG PO Q8 Y for ANXIETY, #10 TAB Prov:[employer] 11/10/15 Nifedipine (Procardia Xl) 30 Mg Tab.er.24, 30 MG PO BID for 30 Days, TAB Prov:[employer] 11/10/15 Levetiracetam* (Keppra*) 250 Mg Tab, 250 MG PO BID for 30 Days, TAB Prov:[employer] 11/10/15 Atorvastatin* (Atorvastatin*) 40 Mg Tablet, 40 MG PO HS for 30 Days, TAB Prov:[employer] 11/10/15 Follow-up Plan PCP one week Pending Labs Laboratory Tests Test 04/11/16 04:55 Anion Gap 13 (8-16) Basophils # 0.010^3/ul (0.0-0.1) Basophils % 0.4% (0.0-2.0) Blood Morphology Comment Blood Urea Nitrogen 10mg/dl (7-20) Calcium Level 8.8mg/dl (8.4-10.2) Carbon Dioxide Level 29mmol/L (21-31) Chloride Level 104mmol/L (97-110) Creatinine 0.87mg/dl (0.44-1.00) Eosinophils # 0.010^3/ul (0.0-0.5) Eosinophils % 0.0% (0.0-7.0) Glucose Level 83mg/dl (70-220) Hematocrit 32.7% (37.0-47.0) Hemoglobin 11.2g/dl (12.0-16.0) Lymphocytes # 0.810^3/ul (0.8-2.9) Lymphocytes % 21.0% (15.0-51.0) Magnesium Level 1.6mg/dl (1.7-2.5) Mean Corpuscular Hemoglobin 30.1pg (29.0-33.0) Mean Corpuscular Hemoglobin Concent 34.3g/dl (32.0-37.0) Mean Corpuscular Volume 87.6fl (82.0-101.0) Mean Platelet Volume 6.9fl (7.4-10.4) Monocytes # 0.110^3/ul (0.3-0.9) Monocytes % 3.8% (0.0-11.0) Neutrophils # 2.810^3/ul (1.6-7.5) Neutrophils % 74.8% (39.0-77.0) Nucleated Red Blood Cells # 0.010^3/ul (0.0-0.0) Nucleated Red Blood Cells % 0.0/100WBC (0.0-0.0) Platelet Count 29710^3/UL (140-440) Potassium Level 4.4mmol/L (3.5-5.1) Red Blood Count 3.7310^6/ul (4.20-5.40) Red Cell Distribution Width 13.5% (11.5-14.5) Sodium Level 142mmol/L (135-144) White Blood Count 3.810^3/ul (4.8-10.8) AHMET STARKEY MD Apr 11, 2016 13:20
== END 2016-04-11 19:11 | disposition home health service (06) | DRG 683 ==
LOC: E/R 14:57 → UNDOADMOB 16:50 → MS4 16:50 → INTOOBSV 16:50 → MS4 16:51 → OBSVTOIN 04-06 11:07 → PP2 04-10 20:32
PROVIDERS: ADMIT Internal Medicine; ATTEND Internal Medicine
DX: N17.9 Acute kidney failure, unspecified (principal); I69.354 Hemiplegia and hemiparesis following cerebral infarction affecting left non-dominant side; Z68.41 Body mass index [BMI] 40.0-44.9, adult; E86.0 Dehydration; R19.7 Diarrhea, unspecified; I10 Essential (primary) hypertension; D64.9 Anemia, unspecified; I25.10 Atherosclerotic heart disease of native coronary artery without angina pectoris; E78.5 Hyperlipidemia, unspecified; E66.9 Obesity, unspecified; F41.9 Anxiety disorder, unspecified; Z79.02 Long term (current) use of antithrombotics/antiplatelets; Z79.82 Long term (current) use of aspirin; Z96.651 Presence of right artificial knee joint; Z90.710 Acquired absence of both cervix and uterus; Z87.891 Personal history of nicotine dependence
CPT/HCPCS: 36415; 70450; 71010; 74176; 80048; 80053; 80061; 81003; 82270; 82962; 83036; 83690; 83735; 84100; 84436; 84479; 84484; 85025; 85610; 87075; 87086; 90686; 93005; 97116; 97163; 97530; G0378; J3475; J3480; J7030

== ENCOUNTER → 2016-06-22 | Outpatient (CLI) | payer MEDICARE, OTHER ==
[~2016-06-22] MED LIST changes: -ATOR40TA68 PO; +BUPR300T36 PO; -LEVE250T66 PO; -LORA0.5T PO
--- NOTE | 2016-06-22 18:36 | RADRPT ---
PROCEDURE: XR Right hip and pelvis. CLINICAL INDICATION: Right hip pain. Pelvic pain. TECHNIQUE: Two views. Frontal pelvis and lateral right hip. COMPARISON: No prior studies are available for comparison. FINDINGS: There is no fracture or dislocation. The soft tissues are normal. There are moderate degenerative changes of the right hip with joint space narrowing and osteophytes. There is a left hip total arthroplasty which appears satisfactory. There is no evidence of loosenin g. There is no lytic or blastic lesion. Surgical clips are present in the pelvis. IMPRESSION: 1. 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 2. Left hip total arthroplasty. 3. Prior pelvic surgery. RPTAT: QQ .Dominic Dominguez MD, MD Date Time Electronically viewed and signed by .Dominic Dominguez MD, on 06/22/2016 18:35 .R/
--- NOTE | 2016-06-23 06:42 | HKNOTE ---
DATE OF SERVICE: 06/22/2016 MAIN COMPLAINT: Right hip pain. HISTORY OF MAIN COMPLAINT: The patient is a 65-year-old female who is well known to me. I have per formed left knee replacement and left hip replacement on her in the past. She has also had a right knee replacement and she also had shoulder surgery. Currently, she complains of pain in the right knee. The pain has been present for about 2 years, viry since February of 2016. Her main pain is her right buttocks with radiation to the lower back, d own her lateral aspect of her right leg to just below the knee and down to the mid calf area. She a lso gets pain in her right greater trochanter. Pain is aggravated by walking, weightbearing, and st air climbing. She does get rest pain. She takes ibuprofen for the pain and Watson which appears to make the pain worse. The patient does not have a history of problems with her back. She has never had an MRI scan of her lumbar spine. The pain in the right buttocks radiates down the leg to below the knee. She occasionally gets numbn ess and tingling in the right leg which extends down below the knee. Note that she also gets simila r symptoms in the left leg. On a level surface, she cannot walk more than 2 blocks without stopping. She limps some of the time . She does not have a shoe lift. She cannot clip her toenails. She cannot tie her shoelaces. PAST ORTHOPEDIC HISTORY: Left total knee replacement in 2005. Total hip replacement [place] [address] Darden. PRIOR CORTISONE INTAKE: Into the right shoulder many times. ALCOHOL INTAKE: Sober since 1988. She does not drink alcoholic beverages. ____: None. PRIOR INJURIES TO HIPS OR KNEES: None. OTHER JOINT PROBLEMS: None other than those mentioned above. BLOOD TESTS FOR ARTHRITIS: None ____ hips. WORK STATUS: Patient is retired. PAST MEDICAL HISTORY: Hypertension. PAST SURGICAL HISTORY: Four joints mentioned above and a hysterectomy. ALLERGIES: NONE. MEDICATIONS: 1. Aspirin 81 mg daily. 2. Lipitor 40 mg daily. 3. Plavix 75 mg a day. 4. Procardia-XL 330 mg twice a day. 5. Wellbutrin-XL 300 mcg a day. 6. Xanax 1 mg as needed for anxiety. FAMILY HISTORY: Noncontributory. SYSTEMS REVIEW: Prone to severe headaches and dizzy spells, tingling sensation into arms and legs, numbness in the right leg, gait disturbance. HABITS: The patient quit smoking 20 years ago. She does not drink alcoholic beverages. The patien t denies any bladder or bowel incontinence. PHYSICAL EXAMINATION: GENERAL: The patient is a fit-looking 65-year-old female, somewhat underweight. Height 5 feet 9 in ches, weight 280 pounds. Blood pressure 140/60, temperature 98.2. BACK: Dynamic pain assessment reveals a pain free range of motion in extension, lateral bending, an d rotation. Lateral flexion to the right reproduces her pain. Inspection of the spine reveals no li st. There is no lumbar paraspinal muscle spasm. The pelvis is level. Facet stress test is negative b ilaterally. Palpation of the spine demonstrates no tenderness of the spinous processes, facet joints , sacroiliac joint, sciatic notch, or posterior thigh. NEUROLOGIC: Motor examination reveals no muscle deficit in the lower extremities. Deep tendon refle xes in the lower extremities: Right knee jerk plus, left knee jerk plus, right ankle jerk plus, lef t ankle jerk plus. Straight leg raising is positive on the right at 80 degrees, negative on the left at 100 degrees. Lasegue and MARRY tests are negative. HIPS: Both hips have full range of motion without pain. No tenderness anywhere on either hip. GAIT: The patient walks without a walking aid. Her gait is normal. RIGHT AND LEFT KNEE: Revealed a scar from prior total knee replacement on each knee. The right kne e flexed to 90 degrees. Left knee 95 degrees. Extension on either knee was 0 degrees. IMAGING: Plain x-rays of the pelvis and hips obtained today as well as her knees show a perfect ASR total hip replacement. All components are well aligned and well attached to the bone. X-rays of t he opposite normal hip obtained today show a perfect hip replacement operation. The alignment is go od. The parts are all attached to the bone. There is some wear of the superior acetabular rim. Plain x-rays of the pelvis and hips obtained today at the [facility] [place] were reviewe d. These show a completely normal right hip. The left hip shows a hip replacement implant. All co mponents are well attached to the bone and well oriented toward each other. DIAGNOSES: 1. Right-sided sciatica. 2. 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 3. Right shoulder surgery by Dr. Darden in 2017. MANAGEMENT: The patient is advised that we will unfortunately have to get an MRI scan of the lumbar spine before we can proceed. She has been referred to Dr. Kyler Elizabeth for an orthopedic meño luation to see if she would qualify for an MRI scan of the lumbar spine. PLAN: 1. The patient is being sent for an MRI scan of L1-S1. 2. She is being referred to Dr. Kyler Elizabeth for a spine consultation. Dictated By: OSMAN FLEMING/KYLEE Conf#: [id number] DID#: [id number]
== END | disposition home or self-care (01) ==
LOC: HKI 14:18
DX: M25.551 Pain in right hip (principal); M54.31 Sciatica, right side; Z96.643 Presence of artificial hip joint, bilateral; Z96.653 Presence of artificial knee joint, bilateral
CPT/HCPCS: 73502; G0463